=== PATIENT | male | born 1945 | race Caucasian/White ===

== ENCOUNTER 2023-11-30 09:43 | Emergency (ER) | payer OTHER, SELFPAY ==
[2023-11-30 10:00] VITALS: BP 140/66
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
[2023-11-30 11:27] VITALS: BMI 23.9
[2023-11-30 11:30] VITALS: BP 138/68
[2023-11-30 11:52] LABS: % Basophils 0.8 % (0-2); % Eosinophils 1.8 % (0-6); % Immature Granulocytes 0.3 % (0-0.5); % Lymphocytes 22.8 % (20.5-51.1); % Monocytes 7.9 % (1.7-9.3); % Neutrophils 66.4 % (42.2-75.2); Absolute Eosinophils 0.1 10^3/uL (0-0.7); Absolute Lymphocytes 0.9 10^3/uL (1.2-3.4); Absolute Monocytes 0.3 10^3/uL (0.1-0.6); Absolute Neutrophils 2.6 10^3/uL (1.4-6.5); Hematocrit 37.7 % (39.0-52.0); Hemoglobin 12.8 g/dL (13.0-18.0); Mean Corpuscular Volume 97.2 fL (80.0-94.0); Nucleated Red Blood Cells % 0 % (-); Red Blood Cell Count 3.88 10^6/uL (4.70-6.10); Red Cell Dist. Width 14.5 % (11.5-14.5); White Blood Cell Count 3.9 10^3/uL (4.8-10.8)
[2023-11-30 12:00] VITALS: BP 119/69
[2023-11-30 12:06] LABS: Potassium 4.1 mmol/L (3.5-5.1)
[2023-11-30 12:07] LABS: ALT (SGPT) 48 U/L (0-50); AST (SGOT) 69 U/L (17-59); Albumin 3.2 g/dl (3.5-5.0); Alkaline Phosphatase 204 U/L (38-126); Blood Urea Nitrogen 15 mg/dl (9-20); Calcium 8.8 mg/dl (8.4-10.2); Carbon Dioxide 26 mmol/L (22-30); Chloride 107 mmol/L (98-107); Estimated Creatinine Clearance 99 ml/min; Glucose 101 mg/dl (70-99); Lipase 91 U/L (23-300); Sodium 138 mmol/L (135-145); Total Protein 6.3 g/dl (6.3-8.2); eGFR > 60.00
[2023-11-30 12:25] LABS: Urine Albumin Negative (Neg - Trace); Urine Bilirubin Negative (Negative); Urine Character Clear (Clear); Urine Color Yellow; Urine Glucose Negative (Negative); Urine Ketone Negative (Negative); Urine Leukocyte Negative (Negative); Urine Nitrite Negative (Negative); Urine Occult Blood Negative (Negative); Urine Specific Gravity 1.015 (<1.030); Urine Urobilinogen 2+ (Neg - 1+)
[2023-11-30 12:29] LABS: Mean Platelet Volume 11.5 fL (7.4-10.4); Platelet Count 84 10^3/uL (130-400)
[2023-11-30 13:06] VITALS: BP 146/85
[2023-11-30 14:00] VITALS: BP 120/79
== END 2023-11-30 16:12 | disposition home or self-care (01) ==
LOC: EMR 09:43
PROVIDERS: Physician Assistant; EMERGENCY PHYSICIAN Emergency Medicine; FAMILY PHYSICIAN Internal Medicine
DX: R07.89 Other chest pain (principal); R10.11 Right upper quadrant pain; K82.8 Other specified diseases of gallbladder; K74.60 Unspecified cirrhosis of liver; K57.92 Diverticulitis of intestine, part unspecified, without perforation or abscess without bleeding
CPT/HCPCS: 99285; 74177; 76700; 80053; 81003; 83690; 85025; 93005; Q9967

== ENCOUNTER → 2024-01-05 13:13 | Outpatient (REF) | payer OTHER, SELFPAY | LOC: MRI 3T 13:13 | PROVIDERS: ATTENDING PHYSICIAN Internal Medicine Transplant Hepatology; FAMILY PHYSICIAN Internal Medicine | DX: K74.69 Other cirrhosis of liver (principal) | CPT/HCPCS: 74183; A9581 ==

== ENCOUNTER → 2024-01-28 06:22 | Day surgery (SDC) | payer OTHER, SELFPAY | LOC: GI 06:22 | PROVIDERS: ATTENDING PHYSICIAN Internal Medicine | DX: K74.60 Unspecified cirrhosis of liver (principal); K44.9 Diaphragmatic hernia without obstruction or gangrene; K22.4 Dyskinesia of esophagus; I85.10 Secondary esophageal varices without bleeding; K31.89 Other diseases of stomach and duodenum | CPT/HCPCS: 43239; 88305; 88342 ==

== ENCOUNTER 2024-07-10 12:40 | Inpatient (IN) | payer OTHER, SELFPAY ==
[2024-07-10] VITALS (19 sets, daily range): BP systolic 94–147; BP diastolic 58–91; PULSE 80–85; BMI 24.1
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
[2024-07-10] MEDS: NSS 500 IV (09:18)
[2024-07-10] MEDS: PROTONIX IV 80 MG IV (09:28)
[2024-07-10] MEDS: ROCEPHIN 1000 MG IV (09:28)
[2024-07-10 09:30] LABS: Ammonia 11 umol/L (9-30)
[2024-07-10 09:31] LABS: ALT (SGPT) 41 U/L (0-50); AST (SGOT) 81 U/L (17-59); Albumin 2.8 g/dl (3.5-5.0); Alkaline Phosphatase 168 U/L (38-126); Blood Urea Nitrogen 35 mg/dl (9-20); Carbon Dioxide 22 mmol/L (22-30); Chloride 107 mmol/L (98-107); Estimated Creatinine Clearance 101 ml/min; Glucose 118 mg/dl (70-99); Potassium 3.8 mmol/L (3.5-5.1); Sodium 135 mmol/L (135-145); Total Bilirubin 2.8 mg/dl (0.2-1.3); Total Protein 5.7 g/dl (6.3-8.2); eGFR > 60.00
[2024-07-10 09:33] LABS: INR 1.45; PT 18.1 Sec (11.4-14.6)
[2024-07-10 10:19] LABS: % Basophils 0.5 % (0-2); % Immature Granulocytes 0.5 % (0-0.5); % Monocytes 17.2 % (1.7-9.3); % Neutrophils 62.8 % (42.2-75.2); Absolute Lymphocytes 0.7 10^3/uL (1.2-3.4); Absolute Monocytes 0.7 10^3/uL (0.1-0.6); Absolute Neutrophils 2.5 10^3/uL (1.4-6.5); Hematocrit 31.2 % (39.0-52.0); Hemoglobin 10.7 g/dL (13.0-18.0); Mean Corp Hgb Conc. 34.3 g/dL (33.0-37.0); Mean Corpuscular Hgb 33.6 pg (27.0-31.0); Mean Corpuscular Volume 98.1 fL (80.0-94.0); Mean Platelet Volume 12.9 fL (7.4-10.4); Nucleated Red Blood Cells % 0 % (-); Platelet Count 65 10^3/uL (130-400); Red Blood Cell Count 3.18 10^6/uL (4.70-6.10); Red Cell Dist. Width 14.3 % (11.5-14.5); White Blood Cell Count 3.9 10^3/uL (4.8-10.8)
[2024-07-10] MEDS: SANDOSTATIN 50 MCG SC (10:57)
[2024-07-10] MEDS: SANDOSTATIN 500.6 MCG IV ×2 (11:59→23:59)
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
[2024-07-10 12:43] LABS: Urine Albumin Negative (Neg - Trace); Urine Bilirubin Negative (Negative); Urine Character Clear (Clear); Urine Color Yellow; Urine Glucose Negative (Negative); Urine Ketone Negative (Negative); Urine Leukocyte Negative (Negative); Urine Nitrite Negative (Negative); Urine Occult Blood Negative (Negative); Urine Specific Gravity 1.015 (<1.030); Urine Urobilinogen 1+ (Neg - 1+)
--- NOTE | 2024-07-10 12:58 | CON.GI ---
Addendum entered and electronically signed by Lambert Rodrigues MD 07/11/24 10:09:
His is the POA and she signs the consent for procedures.
Original Note:
Consultation
-
Date/Time Consultation Requested: 07/10/2024
Date/Time Consultation Performed: 07/10/2024
Requesting Provider: Hospitalist
Performing Provider: Jw VALENZUELA
Reason for Consultation: balck stool
Medical History
Chief Complaint / HPI
Chief Complaint: melena
History of Present Illness:
78-year-old male with history of liver cirrhosis who currently follows up with Dr. Gomez/Dr. Heredia is brought to the hospital by his as she noticed dark tarry stool this a.m. ( she went to bathroom after she heard a loud noise and noticed her
lying in the bathroom covered with dark stools). reports that has been having multiple BMs in the recent past but he never showed his stool to her. She is suspecting he may be bleeding inside. reports that mental status
of her has been stable and he is at baseline now. He takes rifaximin. He could not tolerate lactulose in the past and she does not want him to have lactulose.
Past Medical History
Past Medical History: Other (cirrhosis)
Social History
Tobacco: Non-Smoker
Alcohol: None
Personal:
Allergies / Home Medications
Allergy/AdvReac Type Severity Reaction Status Date / Time
No Known Allergies Allergy Verified 07/10/24 08:57
�Medication �Instructions �Recorded
oxycodone 5 mg tablet 5 mg PO Q6H PRN Pain #7 tabs 11/30/23
Review of Systems
Vital Signs
Temp Pulse Resp BP Pulse Ox
97.6 F 68 21 133/81 98
07/10/24 08:57 07/10/24 12:02 07/10/24 12:02 07/10/24 12:00 07/10/24 12:05
Physical Exam
Exam
General: No Apparent Distress
Respiratory: Clear
Cardiac: S1/S2
GI: Soft, Non Tender, Non Distended and Normal Bowel Sounds
Neuro: AO x 3 (AAO x 2 -oriented to person/place. not to time (as per that his baseline))
Results
WBC 3.9 10^3/uL (4.8-10.8) L 07/10/24 09:07
Hgb 10.7 g/dL (13.0-18.0) L 07/10/24 09:07
Hct 31.2 % (39.0-52.0) L 07/10/24 09:07
MCV 98.1 fL (80.0-94.0) H 07/10/24 09:07
Plt Count 65 10^3/uL (130-400) L 07/10/24 09:07
Absolute Neuts (auto) 2.5 10^3/uL (1.4-6.5) 07/10/24 09:07
PT 18.1 Sec (11.4-14.6) H 07/10/24 09:07
INR 1.45 07/10/24 09:07
Sodium 135 mmol/L (135-145) 07/10/24 09:07
Potassium 3.8 mmol/L (3.5-5.1) 07/10/24 09:07
Chloride 107 mmol/L (98-107) 07/10/24 09:07
Carbon Dioxide 22 mmol/L (22-30) 07/10/24 09:07
BUN 35 mg/dl (9-20) H 07/10/24 09:07
Creatinine 0.7 mg/dL (0.7-1.3) 07/10/24 09:07
Calcium 8.0 mg/dl (8.4-10.2) L 07/10/24 09:07
Total Bilirubin 2.8 mg/dl (0.2-1.3) H 07/10/24 09:07
AST 81 U/L (17-59) H 07/10/24 09:07
ALT 41 U/L (0-50) 07/10/24 09:07
Alkaline Phosphatase 168 U/L (38-126) H 07/10/24 09:07
Diagnostic Image Results:
MRI abdomen 01/05/2024
IMPRESSION:
1. SEVERE HEPATIC CIRRHOSIS.
2. Small volume of ascites.
3. Severe splenomegaly.
4. Large perisplenic varices and severe splenorenal shunting.
5. Reactive gallbladder distention and wall thickening which appears unchanged.
Prior GI Procedures:
EGD:
01/28/2024 Dr. Gomez
Impression: - Abnormal esophageal motility with tight
cricopharyngeus and distal esophagus.
- Small (< 5 mm) esophageal varices. Not banded.
- 2 cm hiatal hernia.
- Erosive gastropathy with no bleeding and no stigmata
of recent bleeding. Biopsied. Negative for HP
- Flattened mucosa was found in the duodenum, rule out
celiac disease. Biopsied. Negative for celiac disease
Colonoscopy: 05/03/2018 Dr. Gomez
Impression: - Hemorrhoids found on perianal exam.
- Diverticulosis in the sigmoid colon. There was active
bleeding coming from the diverticular opening. Injected.
Clip was placed.
- Blood in the entire examined colon. Lavaged with 2L
with good clearance.
- The examined portion of the ileum was normal.
Assessment / Plan
-
78-year-old male with history of cirrhosis of unknown etiology currently follows up with Dr. Gomez/Dr. Heredia is brought by his as he was having dark melanotic stool this a.m. No further episode since admission. Denies any nausea or vomiting. Hb
on admission was 10.7. Hb was 12.8 ( 11/2023 ). Platelets 65
INR 1.45
AST 81/ALT 41/alkaline phosphatase 168/total bilirubin 2.8/albumin 2.8/serum creatinine 0.7
CT head was negative
Assessment
-- Liver cirrhosis with prior history of encephalopathy. Etiology of liver cirrhosis unclear. following up with Dr. Heredia/Dr. Gomez. MELD- Na 16. Last MRI 12/2023-no focal liver lesion. Mild ascites
-- Melena. BUN was noted to be 35. Hb 10.7 . last EGD 01/2024 Dr. Gomez-grade 1 small varices/erosive gastropathy noted
-- History of encephalopathy. Mental status baseline as per . Ammonia level 11
plan
Clear liquid diet
Continue monitor H&H
Continue octreotide drip
Continue Protonix drip
Continue antibiotics
Continue rifaximin. Patient does not want him to have lactulose
Discussed benefits and risk of EGD. Patient's is the POA. She verbalized understanding and is agreeable for the procedure. Will schedule for EGD tomorrow
Patient's was asking about doing a colonoscopy during this admission. Will discuss after EGD.
N.p.o. after midnight
Total Time Spent with Patient (in minutes): 55
-
-
Thank you for consultation and allowing me to participate in the patient's care. Please call the refrigeration systems installer GI physician during the after hours with any questions or concerns.
[2024-07-10] MEDS: PROTONIX 100 IV (17:18)
[2024-07-10 17:55] LABS: Hematocrit 30.5 % (39.0-52.0); Hemoglobin 10.4 g/dL (13.0-18.0)
--- NOTE | 2024-07-10 18:39 | PTCARENOTE ---
Patient arrived to unit from ED via stretcher; cannot verify accuracy of vital signs prior to 1829. L ac IV site infiltrated where octreotide was infusing; VAT RN paged to start new site. Octreotide moved to R hand IV site; protonix infusing in L
hand. D5 1/2NSS on pump and ready to infuse once new site obtained. Patient Ox1, pleasantly confused; did not know he was in the hospital, did not know the year and did not remember celebrating [place] or the ambulance ride to the hospital. Bed
alarm activated for patient safety. Will report off to oncoming RN.
[2024-07-10] MEDS: D5/0.45%NACL 1000 IV (19:13)
--- NOTE | 2024-07-10 22:28 | PTCARENOTE ---
pt arrived from ED at shift change. pt is AAOx1-2, knows he is in the hospital but very forgetful. bed alarm on. spoke to Quyen on the phone re: concerns about colonoscopy etc. will relay in AM. NSR w/PAC's on the monitor. no c/o pain. able
to use urinal at bedside without issues. orthostatic vitals attempted, pt admitted to feeling dizzy, orthos laying and sitting obtained and then placed back to bed. IV PPI gtt, IV octreotide and IV fluids infusing. care ongoing.
[2024-07-10 22:41] LABS: Hematocrit 29.4 % (39.0-52.0); Hemoglobin 10.5 g/dL (13.0-18.0)
[2024-07-11] VITALS (15 sets, daily range): BP systolic 92–138; BP diastolic 50–72
[2024-07-11] MEDS: PROTONIX 100 IV ×2 (00:48→12:13)
[2024-07-11] MEDS: D5/0.45%NACL 1000 IV ×2 (04:31→14:27)
[2024-07-11 05:20] LABS: Hematocrit 26.9 % (39.0-52.0); Hemoglobin 9.1 g/dL (13.0-18.0); Mean Corp Hgb Conc. 33.8 g/dL (33.0-37.0); Mean Corpuscular Hgb 33.1 pg (27.0-31.0); Mean Corpuscular Volume 97.8 fL (80.0-94.0); Mean Platelet Volume 13.7 fL (7.4-10.4); Platelet Count 68 10^3/uL (130-400); Red Blood Cell Count 2.75 10^6/uL (4.70-6.10); Red Cell Dist. Width 14.7 % (11.5-14.5); White Blood Cell Count 3.8 10^3/uL (4.8-10.8)
[2024-07-11 05:47] LABS: ALT (SGPT) 32 U/L (0-50); AST (SGOT) 67 U/L (17-59); Albumin 2.1 g/dl (3.5-5.0); Alkaline Phosphatase 124 U/L (38-126); Blood Urea Nitrogen 24 mg/dl (9-20); Calcium 7.4 mg/dl (8.4-10.2); Carbon Dioxide 21 mmol/L (22-30); Chloride 108 mmol/L (98-107); Estimated Creatinine Clearance 89 ml/min; Glucose 125 mg/dl (70-99); Potassium 3.8 mmol/L (3.5-5.1); Sodium 134 mmol/L (135-145); Total Bilirubin 2.6 mg/dl (0.2-1.3); Total Protein 4.7 g/dl (6.3-8.2); eGFR > 60.00
[2024-07-11 09:43] LABS: Hematocrit 26.7 % (39.0-52.0); Hemoglobin 9.4 g/dL (13.0-18.0)
--- NOTE | 2024-07-11 09:53 | W.PN.HOSP.TC ---
Today's Communication/Plan
-
Doing well
EGD today
Assessment / Plan
Assessment / Plan
Physical Exam
Gen: NAD, AAOx3.
HEENT: EOMI, moderated scleral icterus.
Neck: supple.
CV: RRR, +S1/S2
Resp: CTAB
Abd: +BS, soft, NT, ND
Skin: Warm. Dry. + Jaundice
Neuro: CN 2-12 intact, non-focal.
Psych: Normal mood and affect.
CT brain: No acute intracranial abnormality noted.
Assessment/Plan
Acute melena
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
-Hb lower than prior, acute blood loss anemia
-cont Protonix and octreotide gtts
-cont Rocephin
-gentle IVFs
-GI following, EGD for today
-NPO and diet as per GI
Liver cirrhosis (of unknown etiology) with prior history of encephalopathy
Mild Ascites
Change in mental status
-More likely acute metabolic encephalopathy due to anemia/acute process as opposed to hepatic encephalopathy (although a normal ammonia does not rule out hepatic encephalopathy)
-Continue rifaximin for now (discussed with GI) -- patient's does not want patient to get Lactulose
FULL/SCDs/IMU
Anticipated Discharge: 24 - 48 hours
Subjective/Interval History
-
Date of Service: July 11, 2024
Patient was seen and examined. He denied any bloody or dark colored bowel movements overnight, and denied any other complaints.
Objective Data
-
Labs:
Laboratory Results
07/10/24 07/11/24 07/11/24
21:57 04:36 04:36
WBC 3.8 L
Hgb 10.5 L Cancelled 9.1 L
Hct 29.4 L Cancelled
Plt Count
Sodium
Potassium
Chloride
Carbon Dioxide
BUN
Creatinine
Glucose
Calcium
Total Bilirubin
AST
ALT
Alkaline Phosphatase
07/11/24 07/11/24
04:36 09:35
WBC
Hgb 9.4 L
Hct 26.9 L 26.7 L
Plt Count 68 L
Sodium 134 L
Potassium 3.8
Chloride 108 H
Carbon Dioxide 21 L
BUN 24 H
Creatinine 0.8
Glucose 125 H
Calcium 7.4 L
Total Bilirubin 2.6 H
AST 67 H
ALT 32
Alkaline Phosphatase 124
Vital Signs:
Vital Signs
Temp Pulse Resp BP Pulse Ox
97.6 F 65 19 111/64 96
07/11/24 07:49 07/11/24 08:00 07/11/24 08:00 07/11/24 08:00 07/11/24 08:00
I&O
07/10/24 07/11/24 07/12/24
06:59 06:59 06:59
Output Total 1050 / 1050 700 / 700
Balance -1050 / -1050 -700 / -700
[2024-07-11] MEDS: ROCEPHIN 1000 MG IV (10:44)
[2024-07-11] MEDS: STERILE WATER FOR INJECTION 10 ML IV (10:44)
[2024-07-11] MEDS: SANDOSTATIN 500.6 MCG IV (12:13)
--- NOTE | 2024-07-11 12:56 | PTCARENOTE ---
Recd pt this AM. confused, which is his baseline. vital signs stable but pt does get dizzy on sitting and standing. Able to stand with one assist to use urinal. good urine output.
--- NOTE | 2024-07-11 15:10 | CM ---
Multiple outreach attempts to SO/Quyen
No answer or ability to leave VM
Pt needs IA and per nursing, pt confused
Plan for EGD today
[2024-07-11] MEDS: CARAFATE SUSPENSION 1 GM PO ×2 (17:23→19:40)
[2024-07-11] MEDS: PROTONIX IV 40 MG IV (19:40)
[2024-07-11] MEDS: NSS (PRESERVATIVE FREE) 10 ML IV (19:40)
[2024-07-11] MEDS: TYLENOL 650 MG PO (22:42)
--- NOTE | 2024-07-11 23:38 | PTCARENOTE ---
assumed care of patient. pt is oriented to self, very confused. tried to reorient patient but unsuccessful. this is patient baseline. bed alarm on. pt with complaints of SPENCER, notified covering RESIDENT INSPECTOR, PO tylenol ordered and given. pt using urinal at
bedside. IV fluids and octreotide gtt infusing. tolerating clear liquid diet. care ongoing.
[2024-07-12] VITALS (13 sets, daily range): BP systolic 114–148; BP diastolic 61–92; BMI 23.6
[2024-07-12] MEDS: SANDOSTATIN 500.6 MCG IV ×3 (00:23→23:34)
[2024-07-12] MEDS: D5/0.45%NACL 1000 IV ×3 (00:23→21:09)
--- NOTE | 2024-07-12 03:59 | PTCARENOTE ---
throughout the night, pt has been extremely confused but now getting agitated with staff. pt is unable to be redirected at all. attempted to call patients with no answer. bed alarm on.
[2024-07-12 05:38] LABS: ALT (SGPT) 32 U/L (0-50); AST (SGOT) 62 U/L (17-59); Albumin 2.3 g/dl (3.5-5.0); Alkaline Phosphatase 126 U/L (38-126); Blood Urea Nitrogen 14 mg/dl (9-20); Calcium 7.4 mg/dl (8.4-10.2); Carbon Dioxide 22 mmol/L (22-30); Chloride 109 mmol/L (98-107); Estimated Creatinine Clearance 89 ml/min; Glucose 120 mg/dl (70-99); Sodium 136 mmol/L (135-145); Total Protein 5.1 g/dl (6.3-8.2); eGFR > 60.00
[2024-07-12 05:47] LABS: Potassium 3.7 mmol/L (3.5-5.1)
[2024-07-12 05:49] LABS: Hematocrit 29.3 % (39.0-52.0); Hemoglobin 9.9 g/dL (13.0-18.0); Mean Corp Hgb Conc. 33.8 g/dL (33.0-37.0); Mean Corpuscular Hgb 33.2 pg (27.0-31.0); Mean Corpuscular Volume 98.3 fL (80.0-94.0); Mean Platelet Volume 12.8 fL (7.4-10.4); Platelet Count 76 10^3/uL (130-400); Red Blood Cell Count 2.98 10^6/uL (4.70-6.10); Red Cell Dist. Width 14.5 % (11.5-14.5)
[2024-07-12] MEDS: CARAFATE SUSPENSION 1 GM PO ×4 (08:15→21:11)
[2024-07-12] MEDS: PROTONIX IV 40 MG IV ×2 (08:15→21:10)
[2024-07-12] MEDS: NSS (PRESERVATIVE FREE) 10 ML IV ×2 (08:16→21:10)
[2024-07-12] MEDS: ROCEPHIN 1000 MG IV (10:45)
[2024-07-12] MEDS: STERILE WATER FOR INJECTION 10 ML IV (10:45)
--- NOTE | 2024-07-12 11:20 | PN.CDI ---
CDI
- -
CDI:
Physician Documentation Request
Admit Date: 07/10/24 12:40
Dear Doctor Brandon,
Patient presents for evaluation of melena.
Recent labs:
Laboratory Tests
07/10/24 07/11/24 07/12/24
09:07 04:36 04:36
WBC 3.9 L 3.8 L 3.0 L
RBC 3.18 L 2.75 L 2.98 L
Plt Count 65 L 68 L 76 L
Could you please provide a diagnosis that supports the above lab abnormalities and additional evaluation/ monitoring:
Pancytopenia
Abnormal lab value clinically insignificant
Other
Use of terms such as suspected, likely, concern for, or probable (associated with a specific diagnosis that is being evaluated, monitored, or treated as if it exists) are acceptable and can be coded in the inpatient setting, when documented at the
time of discharge.
Thank you,
Steff Spring RN, BSN
CDI Specialist
tiger text
Please use your independent medical judgment in providing your response.
--- NOTE | 2024-07-12 11:27 | W.PN.HOSP.TC ---
Today's Communication/Plan
-
See below
Assessment / Plan
Assessment / Plan
Physical Exam
Gen: NAD, AAOx3.
HEENT: Normocephalic.
Neck: supple.
CV: RRR, +S1/S2
Resp: CTAB
Abd: +BS, soft, NT, ND
Skin: Warm. Dry. + Jaundice
Neuro: CN 2-12 intact, non-focal.
Psych: Normal mood and affect.
CT brain: No acute intracranial abnormality noted.
Assessment/Plan
Acute melena
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
-Hb lower than prior, acute blood loss anemia
-Continue IV PPI 40 mg BiD given gastric erosions
-On discharge, Protonix 40 mg BiD for 2 weeks as well for prevention of post-banding ulceration
-Continue octreotide gtts for 72 hours
-On discharge, Coreg 3.125 mg BiD
-cont Rocephin
-gentle IVFs
-GI following, EGD for today
-Clear Liquids Diet today
Liver cirrhosis (of unknown etiology) with prior history of encephalopathy
Mild Ascites
Change in mental status
-More likely acute metabolic encephalopathy due to anemia/acute process as opposed to hepatic encephalopathy (although a normal ammonia does not rule out hepatic encephalopathy)
-Continue rifaximin for now (discussed with GI) -- patient's does not want patient to get Lactulose
-Start Miralax 17 gm BiD-TiD to titrate to 2-3 BMs per day given agitation earlier today
Pancytopenia
FULL/SCDs/IMU
Anticipated Discharge: 24 - 48 hours
Subjective/Interval History
-
Date of Service: July 12, 2024
Patient was seen and examined. No new complaints or symptoms, except some agitation later in the day.
Objective Data
-
Labs:
Laboratory Results
07/12/24
04:36
WBC 3.0 L
Hgb 9.9 L
Hct 29.3 L
Plt Count 76 L
Sodium 136
Potassium 3.7
Chloride 109 H
Carbon Dioxide 22
BUN 14
Creatinine 0.8
Glucose 120 H
Calcium 7.4 L
Total Bilirubin 3.0 H
AST 62 H
ALT 32
Alkaline Phosphatase 126
Vital Signs:
Vital Signs
Temp Pulse Resp BP Pulse Ox
97.9 F 58 14 129/71 100
07/12/24 07:10 07/12/24 10:50 07/12/24 10:50 07/12/24 10:50 07/11/24 22:00
I&O
07/11/24 07/12/24 07/13/24
06:59 06:59 06:59
Output Total 1050 / 1050 3000 / 3000
Balance -1050 / -1050 -3000 / -3000
--- NOTE | 2024-07-12 11:52 | PTCARENOTE ---
Recd pt this AM. remains very confused. Has not slept in approx 48 hours. Pt repeatedly requesting his . RN made 2 attempts to reach her but no answer and no voicemail available. Pt OOB to chair with min assist. no BM. Medsitter in place.
--- NOTE | 2024-07-12 14:38 | W.PN.GI.CBS2 ---
Today's Communication / Plan
-
S/p recent EGD with banding of grade II EV on 07/11 without signs of recurrent GI bleeding. Continue IV Octreotide gtt x 72 hrs along with IV PPI and IV Ceftriaxone. See rest of care as outlined below.
Assessment / Plan
-
Mr. Chicas is a 78-year-old male with history of cirrhosis of unknown etiology currently follows up with Dr. Gomez/Dr. Heredia is brought by his as he was having dark melanotic stool this a.m. No further episode since admission. Denies any nausea
or vomiting. Hb on admission was 10.7. Hb was 12.8 ( 11/2023 ). Platelets 65. INR 1.45 AST 81/ALT 41/alkaline phosphatase 168/total bilirubin 2.8/albumin 2.8/serum creatinine 0.7. Prior CT head was negative
#Liver cirrhosis with prior history of encephalopathy. Etiology of liver cirrhosis unclear. following up with Dr. Heredia/Dr. Gomez. MELD- Na 16. Last MRI 12/2023-no focal liver lesion. Mild ascites
#Melena 2/2 EV Bleed
#History of encephalopathy. Mental status baseline as per . Ammonia level 11
- S/p EGD 07/11 (for melena) with grade II EV without stigmata of bleeding s/p banding with complete eradication, few other gastric erosions without bleeding, gastric erythema (biopsied) and single duodenal polyp (biopsied) and otherwise wnl
- No signs of rebleeding since his EGD with stable Hgb 9.4 -> 9.9
Recommendations:
- Trend daily MELD 3.0 labs- CMP, INR and CBC
- Continue CLD today, if H/h remains stable may advance to fulls tomorrow
- IV PPI 40 mg BiD given gastric erosions, favor BiD for 2 weeks as well for prevention of post-banding ulceration
- IV Octreotide gtt x 72 hrs
- Will need to be started on NSBB (favor Coreg 3.125 mg BiD) after completion of IV Octreotide at time of discharge
- IV Ceftriaxone x 7 days, may transition to orals near discharge
- May resume home rifaximin 550 mg BiD
- Could not reach early this AM, according to does not want him to have lactulose
- Appears mental status at baseline and prior Ammonia lvl 11 wnl and without asterixis on exam
- Monitor for signs of HE as high risk given recent GI bleed. If concern for HE or worsening mental status, would start Miralax 17 gm BiD-TiD to titrate to 2-3 BMs per day
- No plans for a colonoscopy at this time given grade II EV s/p banding and source of presentation
- Patient was scheduled follow up with Dr. Gomez in office Aug 03 at 1pm
- Rest of care per primary team
Discussed with primary internal medicine team this AM. GI will continue to follow while inpatient.
Subjective
Subjective
Date of Service: July 12, 2024
- S/p EGD 07/11 (for melena) with grade II EV without stigmata of bleeding s/p banding with complete eradication. few other gastric erosions without bleeding, gastric erythema (biopsied) and single duodenal polyp (biopsied) and otherwise wnl
- No signs of rebleeding since his EGD with stable Hgb 9.4 -> 9.9
- Otherwise, no acute events overnight
Remains confused and altered, however reportedly at his baseline. Unable to tolerate lactulose (for unclear reasons) and specifically stating he cannot tolerate this. Otherwise, no recent melena or bloody stools.
Objective
Data Reviewed
Laboratory Data:
Laboratory Results
07/12/24 04:36
07/12/24 04:36
Laboratory Results
PT 18.1 Sec (11.4-14.6) H 07/10/24 09:07
INR 1.45 07/10/24 09:07
Total Bilirubin 3.0 mg/dl (0.2-1.3) H 07/12/24 04:36
AST 62 U/L (17-59) H 07/12/24 04:36
ALT 32 U/L (0-50) 07/12/24 04:36
Alkaline Phosphatase 126 U/L (38-126) 07/12/24 04:36
Vital Signs and I&O:
Vital Signs
Temp Pulse Resp BP Pulse Ox
97.9 F 60 15 115/66 100
07/12/24 11:40 07/12/24 12:00 07/12/24 12:00 07/12/24 12:00 07/11/24 22:00
I&O
07/11/24 07/12/24 07/13/24
06:59 06:59 06:59
Output Total 1050 / 1050 3000 / 3000
Balance -1050 / -1050 -3000 / -3000
Physical Exam
Physical Exam
HEENT: Anicteric and Moist mucous membranes
Cardiology: Normal Sinus Rhythm
Pulmonary: Other (Normal WOB on room air)
GI: Soft, Non Distended and Non Tender
Extremities: No Edema
Neuro: Other (AAOx2 (person/place, not time - reportedly his baseline) ; no asterixis)
--- NOTE | 2024-07-12 17:12 | PTCARENOTE ---
Pt increasingly confused. Has not slept since admission, over 48 hours. becoming more agitated. Dr. Shah notified. Medsitter in place. Conservative measures in place due to long QT. Frequent support provided to pt.
[2024-07-12] MEDS: XIFAXAN 550 MG PO (21:10)
[2024-07-12] MEDS: MIRALAX 17 GRAMS PO (21:10)
[2024-07-13] VITALS (9 sets, daily range): BP systolic 96–129; BP diastolic 49–78; BMI 23.3
--- NOTE | 2024-07-13 02:26 | PTCARENOTE ---
Pt appearing to get sleep last night, respirations even unlabored vitals stable at this time. Continued reminding needed for Pt about why he is here and why his is not here. Pt thinking he had 'drive here' and his 'is looking for him'.
Emotional support and education given Pt was able to be redirected multiple times. Pt had no complaints of pain at this time. bed alarm on, med sitter in room.
[2024-07-13 04:09] LABS: Hematocrit 30.7 % (39.0-52.0); Hemoglobin 10.3 g/dL (13.0-18.0); Mean Corp Hgb Conc. 33.6 g/dL (33.0-37.0); Mean Corpuscular Hgb 33.4 pg (27.0-31.0); Mean Corpuscular Volume 99.7 fL (80.0-94.0); Mean Platelet Volume 12.9 fL (7.4-10.4); Platelet Count 75 10^3/uL (130-400); Red Blood Cell Count 3.08 10^6/uL (4.70-6.10); Red Cell Dist. Width 14.3 % (11.5-14.5); White Blood Cell Count 2.8 10^3/uL (4.8-10.8)
[2024-07-13 04:30] LABS: ALT (SGPT) 33 U/L (0-50); AST (SGOT) 63 U/L (17-59); Albumin 2.4 g/dl (3.5-5.0); Alkaline Phosphatase 119 U/L (38-126); Blood Urea Nitrogen 10 mg/dl (9-20); Calcium 7.4 mg/dl (8.4-10.2); Carbon Dioxide 26 mmol/L (22-30); Chloride 106 mmol/L (98-107); Estimated Creatinine Clearance 89 ml/min; Glucose 124 mg/dl (70-99); Potassium 3.7 mmol/L (3.5-5.1); Sodium 136 mmol/L (135-145); Total Bilirubin 4.2 mg/dl (0.2-1.3); Total Protein 5.2 g/dl (6.3-8.2); eGFR > 60.00
[2024-07-13] MEDS: D5/0.45%NACL 1000 IV (07:04)
[2024-07-13] MEDS: MIRALAX 17 GRAMS PO (08:17)
[2024-07-13] MEDS: PROTONIX IV 40 MG IV (08:17)
[2024-07-13] MEDS: CARAFATE SUSPENSION 1 GM PO ×2 (08:17→11:35)
[2024-07-13] MEDS: XIFAXAN 550 MG PO (08:17)
[2024-07-13] MEDS: NSS (PRESERVATIVE FREE) 10 ML IV (08:17)
--- NOTE | 2024-07-13 08:27 | W.PN.GI.CBS2 ---
Today's Communication / Plan
-
-- he could go today from a GI perspective - he was banded but had no stigmata. according to 11/2023 AASLD guidelines needs octreotide for 2-5 days which he's had and antibiotics up to discharge. hgb stable, bun normalized. so can go on his xifaxan
BID, holding bblockers due to bradycardia, follow up scheduled. Please send labs: CBC, INR, CMP for next week and results can come to me.
Assessment / Plan
-
Mr. Chicas is a 78-year-old male with history of cirrhosis of unknown etiology currently follows up with Dr. Gomez/Dr. Heredia is brought by his as he was having dark melenic stool 07/10/24. No further episode since admission. Denies any nausea or
vomiting. Hb on admission was 10.7. Hb was 12.8 ( 11/2023 ). Platelets 65. INR 1.45 AST 81/ALT 41/alkaline phosphatase 168/total bilirubin 2.8/albumin 2.8/serum creatinine 0.7. Prior CT head was negative
#Liver cirrhosis with prior history of encephalopathy. Etiology of liver cirrhosis unclear. following up with Dr. Heredia/Dr. Gomez. MELD- Na 16. Last MRI 12/2023-no focal liver lesion. Mild ascites
#Melena 2/2 EV Bleed
#History of encephalopathy. Mental status baseline as per . Ammonia level 11
- S/p EGD 07/11 (for melena) with grade II EV without stigmata of bleeding s/p banding with complete eradication, few other gastric erosions without bleeding, gastric erythema (biopsied) and single duodenal polyp (biopsied) and otherwise wnl
- No signs of rebleeding since his EGD with stable Hgb 9.4 -> 9.9 --> 10.3, normalized BUN
Recommendations:
- Trend daily MELD 3.0 labs- CMP, INR and CBC
- advance diet
- IV PPI 40 mg BiD given gastric erosions, favor BiD for 2 weeks as well for prevention of post-banding ulceration, then once daily until repeat
- IV Octreotide gtt (according to AASLD guidelines from 11/2023) patient should be maintained on vasoactive therapy for 2 to 5 days. Goal is to reduce portal pressure and collateral blood flow.
- Will need to be started on NSBB (favor Coreg 3.125 mg BiD) after completion of IV Octreotide at time of discharge -as an outpatient he had previously been bradycardic and beta-blockers have been held - since he was banded we could hold off on
starting the NSBB due to low BPs (currently in the 50s) - this has been discussed outpatient
- stop antibiotics upon discharge - 5 days or upon discharge whatever is first
- per AASLD 11/2023 guidelines: 'Vasoactive therapy (Table 5) that is aimed to reduce portal pressure and collateral blood flow[159,160] as well as antimicrobial prophylaxis should be initiated immediately on presentation and maintained for 2�5
days.[1,159,160] Intravenous antimicrobials are recommended until stability for discharge or 5 days, whichever is shorter, in the absence of active infection.'
- continue home rifaximin 550 mg BiD
- Appears mental status at baseline and prior Ammonia lvl 11 wnl and without asterixis on exam
- Monitor for signs of HE as high risk given recent GI bleed. If concern for HE or worsening mental status, would start lactulose
- No plans for a colonoscopy at this time given grade II EV s/p banding and source of presentation
- Patient was scheduled follow up with Dr. Gomez in office Aug 03 at 1pm
- Rest of care per primary team
Discussed with primary internal medicine team this AM
I called his with no answer, but LVM
re: Moises Chicas - he could go today from a GI perspective - he was banded but had no stigmata. according to 11/2023 AASLD guidelines needs octreotide for 2-5 days which he's had and antibiotics up to discharge. hgb stable, bun normalized. so can go
on his xifaxan BID, holding bblockers due to bradycardia, follow up scheduled. Please send labs: CBC, INR, CMP for next week and results can come to me, Dr. Gomez
Subjective
Subjective
Date of Service: July 13, 2024
Objective
Data Reviewed
Laboratory Data:
Laboratory Results
07/13/24 03:19
07/13/24 03:19
Laboratory Results
PT 18.1 Sec (11.4-14.6) H 07/10/24 09:07
INR 1.45 07/10/24 09:07
Total Bilirubin 4.2 mg/dl (0.2-1.3) H 07/13/24 03:19
AST 63 U/L (17-59) H 07/13/24 03:19
ALT 33 U/L (0-50) 07/13/24 03:19
Alkaline Phosphatase 119 U/L (38-126) 07/13/24 03:19
Vital Signs and I&O:
Vital Signs
Temp Pulse Resp BP Pulse Ox
98.3 F 57 19 99/49 97
07/13/24 03:21 07/13/24 04:00 07/13/24 04:00 07/13/24 04:00 07/12/24 20:20
I&O
07/12/24 07/13/24 07/14/24
06:59 06:59 06:59
Intake Total 2180.4 / 2180.4
Output Total 3000 / 3000 850 / 850
Balance -3000 / -3000 1330.4 / 1330.4
--- NOTE | 2024-07-13 09:42 | W.PN.HOSP.TC ---
Today's Communication/Plan
-
Discharge today
Assessment / Plan
Assessment / Plan
Physical Exam
Gen: NAD, AAOx3.
HEENT: Normocephalic.
Neck: supple.
CV: RRR, +S1/S2
Resp: CTAB
Abd: +BS, soft, NT, ND
Skin: Warm. Dry.
Neuro: CN 2-12 intact, non-focal.
Psych: Normal mood and affect.
Assessment/Plan
Acute melena
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
-Hgb stable, BUN normalized
-Continue IV PPI 40 mg BiD given gastric erosions
-On discharge, Protonix 40 mg BiD for 2 weeks as well for prevention of post-banding ulceration, then Protonix 40 mg once daily until repeat
-Patient received Octreotide and Rocephin during his hospitalization, no antibiotics needed after discharge
-No beta blockers on discharge given bradycardia
-GI following
-EGD took place on 07/11/24, results are above, no rebleeding since
-Patient will need CBC, INR, CMP done within 1 week, and the results should be sent to Dr. Gomez, doorperson
-Follow up with Dr. Gomez in office Aug 03 at 1pm
Liver cirrhosis (of unknown etiology) with prior history of encephalopathy
Mild Ascites
Change in mental status
-More likely acute metabolic encephalopathy due to anemia/acute process as opposed to hepatic encephalopathy (although a normal ammonia does not rule out hepatic encephalopathy)
-Continue rifaximin 550 mg BID -- patient's does not want patient to get Lactulose
-Start Miralax 17 gm BiD-TiD to titrate to 2-3 BMs per day given agitation earlier today
Pancytopenia
FULL/SCDs/IMU
More than 30 minutes spent in discharge including
Final examination of the patient
Summarizing hospital stay
Instructions for continuing care to all relevant caregivers
Preparation of discharge records, prescriptions, and referral forms
Total time spent (in minutes): 43
Anticipated Discharge: Today
Subjective/Interval History
-
Date of Service: July 13, 2024
Patient was seen and examined. He denied any symptoms or complaints.
Objective Data
-
Labs:
Laboratory Results
07/13/24
03:19
WBC 2.8 L
Hgb 10.3 L
Hct 30.7 L
Plt Count 75 L
Sodium 136
Potassium 3.7
Chloride 106
Carbon Dioxide 26
BUN 10
Creatinine 0.8
Glucose 124 H
Calcium 7.4 L
Total Bilirubin 4.2 H
AST 63 H
ALT 33
Alkaline Phosphatase 119
Vital Signs:
Vital Signs
Temp Pulse Resp BP Pulse Ox
97.9 F 57 19 99/49 97
07/13/24 07:25 07/13/24 04:00 07/13/24 04:00 07/13/24 04:00 07/12/24 20:20
I&O
07/12/24 07/13/24 07/14/24
06:59 06:59 06:59
Intake Total 2180.4 / 2180.4
Output Total 3000 / 3000 850 / 850 300 / 300
Balance -3000 / -3000 1330.4 / 1330.4 -300 / -300
[2024-07-13] MEDS: STERILE WATER FOR INJECTION 10 ML IV (09:51)
[2024-07-13] MEDS: ROCEPHIN 1000 MG IV (09:51)
--- NOTE | 2024-07-13 11:49 | W.PN.UPDATE ---
Update Note
Progress Note Update
i did speak to Quyen his and she is ok with the plan. we're planning on an outpatient capsule. they don't want a colonoscopy and there was no clear source on EGD
[2024-07-13] MEDS: SANDOSTATIN IV (14:53)
--- NOTE | 2024-07-13 16:15 | PTCARENOTE ---
VSS. Pt confused, bed alarm and med sitter in place to maintain patient safety. Pt is redirectable and pleasant. Discharge instructions discussed w/ pt's Quyen, all questions answered. Pt discharged.
== END 2024-07-13 16:25 | disposition home or self-care (01) | DRG 377 ==
LOC: IMU 12:40
PROVIDERS: Internal Medicine Gastroenterology; ADMITTING PHYSICIAN Internal Medicine; ATTENDING PHYSICIAN Hospitalist; CONSULT PHYSICIAN Internal Medicine Gastroenterology; EMERGENCY PHYSICIAN Emergency Medicine; FAMILY PHYSICIAN Internal Medicine
PROC: 0DB98ZX Excision of Duodenum, Via Natural or Artificial Opening Endoscopic, Diagnostic (ICD-10-PCS; 2024-07-11)
PROC: 0DB68ZX Excision of Stomach, Via Natural or Artificial Opening Endoscopic, Diagnostic (ICD-10-PCS; 2024-07-11)
DX: K92.1 Melena (principal); G93.41 Metabolic encephalopathy; D61.818 Other pancytopenia; R18.8 Other ascites; I85.10 Secondary esophageal varices without bleeding; K74.60 Unspecified cirrhosis of liver; K64.9 Unspecified hemorrhoids; K22.2 Esophageal obstruction; K44.9 Diaphragmatic hernia without obstruction or gangrene; K31.7 Polyp of stomach and duodenum
CPT/HCPCS: 88305; 70450; 80053; 81003; 82140; 85014; 85018; 85025; 85027; 85610; 86850; 86900; 86901; 88342; 93005; 96361; 96372; 96374; 96375; 99291

== ENCOUNTER 2024-07-15 19:49 | Inpatient (IN) | payer OTHER, SELFPAY ==
[2024-07-14] VITALS (12 sets, daily range): BP systolic 110–149; BP diastolic 60–82; PULSE 60–72; BMI 25.3; BMI 24.7
[2024-07-14 11:27] LABS: % Basophils 0.4 % (0-2); % Eosinophils 1.8 % (0-6); % Immature Granulocytes 0.4 % (0-0.5); % Monocytes 9.6 % (1.7-9.3); % Neutrophils 66.8 % (42.2-75.2); Absolute Eosinophils 0.1 10^3/uL (0-0.7); Absolute Monocytes 0.5 10^3/uL (0.1-0.6); Absolute Neutrophils 3.3 10^3/uL (1.4-6.5); Hematocrit 33.9 % (39.0-52.0); Hemoglobin 11.8 g/dL (13.0-18.0); Mean Corp Hgb Conc. 34.8 g/dL (33.0-37.0); Mean Corpuscular Hgb 33.5 pg (27.0-31.0); Mean Corpuscular Volume 96.3 fL (80.0-94.0); Mean Platelet Volume 12.4 fL (7.4-10.4); Nucleated Red Blood Cells % 0 % (-); Platelet Count 100 10^3/uL (130-400); Red Blood Cell Count 3.52 10^6/uL (4.70-6.10); Red Cell Dist. Width 14.4 % (11.5-14.5); White Blood Cell Count 4.9 10^3/uL (4.8-10.8)
[2024-07-14 11:36] LABS: ALT (SGPT) 36 U/L (0-50); AST (SGOT) 71 U/L (17-59); Albumin 2.8 g/dl (3.5-5.0); Alkaline Phosphatase 162 U/L (38-126); Blood Urea Nitrogen 12 mg/dl (9-20); Calcium 8.1 mg/dl (8.4-10.2); Carbon Dioxide 27 mmol/L (22-30); Chloride 105 mmol/L (98-107); Glucose 133 mg/dl (70-99); Potassium 3.8 mmol/L (3.5-5.1); Sodium 137 mmol/L (135-145); Total Bilirubin 5.1 mg/dl (0.2-1.3); Total Protein 5.8 g/dl (6.3-8.2); eGFR > 60.00
--- NOTE | 2024-07-14 12:28 | ED.GENMED ---
History of Present Illness
General
Chief Complaint: Rectal Bleeding
Source: patient
Exam Limitations: none
Time Seen by Provider: 07/14/24 12:04
History of Present Illness
History of Present Illness:
78-year-old male presents for reevaluation. He was discharged from this hospital yesterday with GI bleeding. He had an endoscopy. He has a history of cirrhosis. He had some esophageal varices banded during his endoscopy. There was no obvious
stigmata of bleeding at that time. The decision was made to discharge him. Last evening had a large black bowel movement. His notes that he is slightly dizzy upon standing. He denies pain. He has no complaints otherwise.
Past History
Past History
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
ED Past Surgical History: None
Social History
Tobacco: Non-smoker
Alcohol: Occasional
Personal:
Living: with family
Employment: Retired
Family History
Family History: Other (Noncontributory)
Phy Exam
Physical Exam
Physical Exam:
General: Well-appearing male slightly jaundiced no acute respiratory distress
HEENT: Normocephalic atraumatic sclera icteric
Heart: Regular rate and rhythm no murmurs
Lungs: Clear no wheeze
Abdomen soft slightly distended nontender no guarding rebound normal bowel sounds
Rectal exam shows black tarry stool that is heme positive
Extremities: No cyanosis
Course
Orders/Labs/Results
Orders:
Orders
07/14/24 11:04
Complete Blood Count/With Diff Urgent
Comprehensive Metabolic Panel Urgent
07/14/24 13:14
Pantoprazole [Protonix IV] 40 mg IV NOW STA
Abnormal Lab Results
07/14/24
11:04
RBC 3.52 L 10^6/uL
(4.70-6.10)
Hgb 11.8 L g/dL
(13.0-18.0)
Hct 33.9 L %
(39.0-52.0)
MCV 96.3 H fL
(80.0-94.0)
MCH 33.5 H pg
(27.0-31.0)
Plt Count 100 L D 10^3/uL
(130-400)
MPV 12.4 H fL
(7.4-10.4)
Absolute Lymphs (auto) 1.0 L 10^3/uL
(1.2-3.4)
Monocytes % 9.6 H %
(1.7-9.3)
Glucose 133 H mg/dl
(70-99)
Calcium 8.1 L mg/dl
(8.4-10.2)
Total Bilirubin 5.1 H mg/dl
(0.2-1.3)
AST 71 H U/L
(17-59)
Alkaline Phosphatase 162 H U/L
(38-126)
Total Protein 5.8 L g/dl
(6.3-8.2)
Albumin 2.8 L g/dl
(3.5-5.0)
07/14/24 11:04
07/14/24 11:04
Vital Signs
Initial and Last Documented VS:
Initial Vital Signs
Temp Pulse Resp BP Pulse Ox
98.0 F 73 16 139/82 98
07/14/24 09:56 07/14/24 09:56 07/14/24 09:56 07/14/24 09:56 07/14/24 09:56
Last Documented Vital Signs
Temp Pulse Resp BP Pulse Ox
98.0 F 66 20 130/68 98
07/14/24 09:56 07/14/24 12:43 07/14/24 12:43 07/14/24 12:43 07/14/24 12:43
MDM/Problems Addressed
Differential Diagnosis Includes:
Patient presents for recurrent GI bleed. Reviewed prior records. He was just discharged from this hospital yesterday. Hemoglobin is improved today renal functions are stable vital signs are stable. Discussed with GI who will see the patient
*Critical Care Note
Total Time (30-74mins, 75-104mins- exclusive of procedures): Not Applicable
Update Note
Update Note:
Vital signs remained stable. Patient does have melanotic stool. Protonix bolus ordered. Seen by GI who is recommending he stay in the hospital for colonoscopy. Hospitalist notified
ED Attending Note
-
Portions of this chart may have been created with voice recognition software.� Occasional wrong word or��sound alike� substitutions may have occurred due to the inherent limitations of voice recognition software.
Discharge Plan
Departure
Patient Disposition: Admit
Date of Disposition: 07/14/24
Time of Disposition: 13:20
Admit to: Telemetry
Presentation/result/management discussed w/ accepting MD/DO: Hospitalist
Discharge Problem:
Acute GI bleeding
Prescriptions:
No Action
zinc 50 mg Tablet
50 mg PO DAILY
Xifaxan 550 mg Tablet
550 mg PO BID
polyethylene glycol 3350 17 gram Powder In Packet
17 g PO BID Qty: 100 1RF
pantoprazole 40 mg tablet,delayed release (DR/EC)
See Rx Instructions .ROUTE .COMPLEX Qty: 60 1RF
Rx Instructions:
40 mg BID for 2 weeks, followed by 40 mg daily
Referrals:
Saman Dykes MD [Family Provider] -
Interventions
Interventions:
*Risk Screen - Suicide Last Done: 07/14/24 09:56
*Neglect/Abuse Screening Last Done: 07/14/24 09:56
ED- Fall Risk Assessment Last Done: 07/14/24 12:44
VN-Djjycm-Wkryfzchls Assessment Last Done: 07/14/24 12:44
ED- Cardiac Assessment Last Done: 07/14/24 12:44
ED- Pulmonary Assessment Last Done: 07/14/24 12:44
Discharge Date and Time
Print Language: KOREAN
[2024-07-14] MEDS: PROTONIX IV 40 MG IV ×2 (13:35→21:59)
[2024-07-14 13:50] LABS: Direct Bilirubin 1.9 mg/dl (0.0-0.4)
--- NOTE | 2024-07-14 14:02 | HPS.HSE ---
Family Physician
-
Family Physician: Saman Dykes
Chief Complaint
-
GI bleed
History of Present Illness
Patient is a 78-year-old male with past medical history significant for recent GI bleed, and cirrhosis who presented to [facility] ED for reevaluation of recent GI bleed. Patient discharged from hospital yesterday with no obvious bleeding at that
time. After arriving home it is reported that patient had large black bowel movement and will have dizziness with change in positions. Patients at bedside stated there was a coupious amount of black stool last night and she called Dr. Gomez/CHRIS
this morning and reported stool and dizziness and they recommended to bring patient to ED for treatment.
Medical History
Past Medical History
Past Medical History: Reports Other
Additional Past Medical History:
GI bleed
cirrhosis
hepatic encephalopathy
Past Surgical History: Reports None
Social History
Tobacco: Former Smoker
Alcohol: None
Drug: None
Personal:
Living: With Family
Employment: Retired
Family History
Family History: Not pertinent
Allergies / Home Medications
Allergies reflects when Allergies were last updated in [employer].
Home Medications with original date entered in [employer]
Allergy/Medication List:
Allergies
Allergy/AdvReac Type Severity Reaction Status Date / Time
No Known Allergies Allergy Verified 07/14/24 09:57
Home Medications
rifaximin 550 mg tablet (Xifaxan) 550 mg PO BID Liver Issues 07/10/24
zinc sulfate 50 mg zinc (220 mg) tablet 50 mg PO DAILY 07/14/24
Review of Systems
-
History Source: Patient
Constitutional: Reports No Symptoms
EENT: Reports No Symptoms
Respiratory: Reports No Symptoms
Cardiac: Reports No Symptoms
Abdomen/GI: Reports Black Stools (large black BM post discharge yesterday)
: Reports No Symptoms
Musculoskeletal: Reports No Symptoms
Skin: Reports No Symptoms
Neurological: Reports No Symptoms
Endocrine: Reports No Symptoms
Hematologic/Lymphatic: Reports No Symptoms
Psych: Reports No Symptoms
Physical Exam
Vital Signs
Vital Signs
Temp Pulse Resp BP Pulse Ox
98.0 F 66 20 130/68 98
07/14/24 09:56 07/14/24 12:43 07/14/24 12:43 07/14/24 12:43 07/14/24 12:43
Physical Exam
General: Well Developed, Well Nourished, No Apparent Distress, Comfortable and Conversant
HEENT: NormoCephalic, Moist mucous membranes, Atraumatic, PERRLA, [place] Conjunctivae, Nose Appears Normal and Ears Appear Normal
Respiratory: Clear and Non Labored Respirations
Cardiac: S1/S2 and Regular Rhythm; No Murmur, Rub or Gallop
Breast: Deferred by me
GI: Soft, Non Tender, Non Distended and Normal Bowel Sounds; No Organomegaly
Rectal: Hem Positive
Genito-urinary: Deferred by me
Musculoskeletal: No Clubbing, No Cyanosis and No Edema
Skin: No Rash
Neuro: Awake, Alert, Nonfocal/grossly intact and Cranial Nerves Intact
Hematologic/Lymphatic: No Lymphadenopathy
Psych: Calm and Intact Judgment/Insight
Laboratory Results
-
07/14/24 11:04
07/14/24 11:04
Laboratory Results
Total Bilirubin 5.1 mg/dl (0.2-1.3) H 07/14/24 11:04
AST 71 U/L (17-59) H 07/14/24 11:04
ALT 36 U/L (0-50) 07/14/24 11:04
Alkaline Phosphatase 162 U/L (38-126) H 07/14/24 11:04
Data Reviewed
-
Lab Data: Labs Reviewed by me
Impression/Plan
-
IMPRESSION/PLAN:
#GI bleed
Hgb 11.8 Hct 33.9
discharged yesterday for GI bleed and had esophageal varices banded
Large black bowel movement post discharge
- Admit to telemetry for observation
- Consult GI
- NPO for colonoscopy
- IV Protonix
#cirrhosis
unknown etiology
AST 71, ALT 36, Alk Phos 162
- continue Xifaxan
Code Status: Full Code
DVT Prophylaxis: SCDs
--- NOTE | 2024-07-14 15:38 | CON.GI ---
Addendum entered and electronically signed by Hortensia Gomez DO 07/14/24 17:39:
Patient seen and examined independently of BUSINESS ENTERPRISE OFFICER. I agree with her note with my additions below
Moises is a 78-year-old male with cirrhosis from unclear etiology with intermittent hepatic encephalopathy who refuses liver transplant workup who follows with me outpatient as well as Dr. Heredia who was just here from 06/10/2024 to 07/13/2024 coming in
with soft black stools. He underwent EGD on 07/11/[address] Hansen and had grade 2 esophageal varices with no stigmata or bleeding and no blood throughout the EGD into the small bowel. Did have some gastric erosions mild Schatzki's ring.
She did band him. His hemoglobin continue to improve and he was discharged yesterday. He had not had a bowel movement for 2 days prior to discharge. When he got home after getting some MiraLAX in the hospital he had a large black stool and his
, Quyen brought him back. She said when he stands he feels dizzy and therefore we readmitted him despite improvement in labs and stable vital signs for colonoscopy for tomorrow. Usually he is very active and rides his stationary bike 1 hour
a day. He has not done that in a couple of weeks. He does not admit to any black stools until this 1 and his has not been looking at his stools until I told her to watch out for them and not let him flush. She is now more aware of what to
look for. Labs today show a hemoglobin of 11.8 with a platelet count of 100 and creatinine of 0.8 with a BUN of 12, total bilirubin 5.1 majority indirect with a direct bilirubin of 1.9, AST 71, ALT 36, alkaline phosphatase 162.
last colonoscopy was inpatient for a diverticular bleed and had blood throughout so not a good exam. He recently refused outpatient colonoscopy with me and is now agreeable.
Plan:
-- colonoscopy tomorrow since no bleeding source found
-- ppi, antibiotics to decrease bleeding risk and bacterial translocation
-- rifaxamin for HE
-- monitor and chart BMs and check labs in am
Original Note:
Consultation
-
Date/Time Consultation Requested: 07/14/241519
Date/Time Consultation Performed: 07/14/240
Requesting Provider: TONY Puentes
Performing Provider: TONY Antony, Hortensia Gomez,
Reason for Consultation: black stool
Medical History
Chief Complaint / HPI
Chief Complaint: melena
History of Present Illness:
78-year-old male with history of non alcoholic liver cirrhosis, hepatic encephalopathy, who currently follows up with Dr. Gomez/Dr. Heredia with recent admission 07/10/24 til 07/13/24 with black stools. Pt completed EGD 07/[address] Ayala with
grade II EV with no bleeding or stigmata s/p banding mild schatzki's ring, small HH, gastric erosions with no bleeding, erythema in stomach and single duodenal polyp. He was discharged and on return home noted black stool and returns to hospital.
In ER noted heme +. Pt currently admits to memory issues and dizziness but denies dysphagia, GERD, nausea, vomiting, abdominal pain, diarrhea, constipation or red stools. hx colonoscopy 2018 with hemorrhoids, diverticulosis with bleeding from
diverticular opening, injected and clipped. blood in entire colon, lavaged with clearance. On admission hbg 11.8, platelets 100, bili 5, D emilia 1.9, AST 71, ALT 36 alk phos 162. INR 1,45 on 07/10.
Past Medical History
Past Medical History: Cancer (basal cell CA) and Other (cirrhosis, GI bleed, hepatic encephalopathy)
Social History
Tobacco: Non-Smoker
Alcohol: Occasional (in past social 1-2 drinks in 2 weeks )
Personal:
Living: With Family
Employment: Retired
Family History
Family History: Other (denies family hx liver issues )
Allergies / Home Medications
Allergy/AdvReac Type Severity Reaction Status Date / Time
No Known Allergies Allergy Verified 07/14/24 09:57
�Medication �Instructions �Recorded
rifaximin 550 mg tablet (Xifaxan) 550 mg PO BID Liver Issues 07/10/24
zinc sulfate 50 mg zinc (220 mg) 50 mg PO DAILY 07/14/24
tablet
Review of Systems
-
Unable to obtain full review of systems at this time due to: Other (some memory issues )
History Source: Patient
Constitutional: Reports No Symptoms
EENT: Reports No Symptoms
Respiratory: Reports No Symptoms
Cardiac: Reports No Symptoms
Abdomen/GI: Reports Black Stools
: Reports No Symptoms
Musculoskeletal: Reports No Symptoms
Skin: Reports No Symptoms
Neurological: Reports Dizzy and Weakness
Hematologic/Lymphatic: Reports Bleeding
Vital Signs
Temp Pulse Resp BP Pulse Ox
98.0 F 66 20 130/68 98
07/14/24 09:56 07/14/24 12:43 07/14/24 12:43 07/14/24 12:43 07/14/24 12:43
Physical Exam
Exam
General: Well Developed, Well Nourished and No Apparent Distress
HEENT: Other (jaundice )
Respiratory: Clear
Cardiac: Regular Rhythm
GI: Soft, Non Distended and Distended (minimal )
Musculoskeletal: No Clubbing and No Cyanosis
Skin: Warm and Dry
Neuro: Awake, Alert, AO x 3 and Other (occasional forgetfulness )
Psych: Calm
Results
WBC 4.9 10^3/uL (4.8-10.8) 07/14/24 11:04
Hgb 11.8 g/dL (13.0-18.0) L 07/14/24 11:04
Hct 33.9 % (39.0-52.0) L 07/14/24 11:04
MCV 96.3 fL (80.0-94.0) H 07/14/24 11:04
Plt Count 100 10^3/uL (130-400) L D 07/14/24 11:04
Absolute Neuts (auto) 3.3 10^3/uL (1.4-6.5) 07/14/24 11:04
Sodium 137 mmol/L (135-145) 07/14/24 11:04
Potassium 3.8 mmol/L (3.5-5.1) 07/14/24 11:04
Chloride 105 mmol/L (98-107) 07/14/24 11:04
Carbon Dioxide 27 mmol/L (22-30) 07/14/24 11:04
BUN 12 mg/dl (9-20) 07/14/24 11:04
Creatinine 0.8 mg/dL (0.7-1.3) 07/14/24 11:04
Calcium 8.1 mg/dl (8.4-10.2) L 07/14/24 11:04
Total Bilirubin 5.1 mg/dl (0.2-1.3) H 07/14/24 11:04
AST 71 U/L (17-59) H 07/14/24 11:04
ALT 36 U/L (0-50) 07/14/24 11:04
Alkaline Phosphatase 162 U/L (38-126) H 07/14/24 11:04
Diagnostic Image Results:
12/2023 MRI abdomen
1. SEVERE HEPATIC CIRRHOSIS.
2. Small volume of ascites.
3. Severe splenomegaly.
4. Large perisplenic varices and severe splenorenal shunting.
5. Reactive gallbladder distention and wall thickening which appears unchanged.
Prior GI Procedures:
EGD: 07/11 [facility] - Grade II esophageal varices with no bleeding and no
stigmata of recent bleeding. Completely eradicated.
Banded.
- Mild Schatzki ring.
- Small hiatal hernia.
- Gastric erosions with no bleeding and no stigmata of
recent bleeding.
- Erythematous mucosa in the stomach. Biopsied.
- A single duodenal polyp. Biopsied.
- Normal second portion of the duodenum.
Colonoscopy: 04/2018 [facility] - Hemorrhoids found on perianal exam.
- Diverticulosis in the sigmoid colon. There was active
bleeding coming from the diverticular opening. Injected.
Clip was placed.
- Blood in the entire examined colon. Lavaged with 2L
with good clearance.
- The examined portion of the ileum was normal.
- No specimens collected.
Assessment / Plan
-
78-year-old male with history of non alcoholic liver cirrhosis, hepatic encephalopathy, who currently follows up with Dr. Gomez/Dr. Heredia with recent admission 07/10/24 til 07/13/24 with black stools. Pt completed EGD 07/[address] Ayala with
grade II EV with no bleeding or stigmata s/p banding mild schatzki's ring, small HH, gastric erosions with no bleeding, erythema in stomach and single duodenal polyp . He was discharged and on return home noted black stool and returns to hospital.
In ER noted heme +. hx colonoscopy 2017 with hemorrhoids, diverticulosis with bleeding from diverticular opening, injected and clipped. blood in entire colon, lavaged with clearance. On admission hbg 11.8, platelets 100, bili 5, D emilia 1.9, AST 71,
ALT 36 alk phos 162. INR 1,45 on 07/10.
-melana
-cirrhosis
-hepatic encephalopathy
-EV grade II non bleeding on recent EGD 07/10 s/p banding
-recent gastric erosions/gastric erythema
-mild ascites on prior imaging
PLAN:
etiology of bleeding unclear recent EGD as noted with no active bleeding but completed EV banding. Source may be lower GI or SB bleeding
plan for colonoscopy 07/15
for prep tonight
cont to trend hbg and stool record
add INR to recalculate in AM was 16 last admission
cont PPI
cont Xifaxan-- lactulose held in past as per notes pt did not dot tolerate in past
OP follow with Dr. Gomez and Dr. Heredia
will review with Dr. Gomez for NSBB as not started last admission with low BP and recently completed abx course
last HCC screening with MRI in December no masses seen
- Patient scheduled follow up with Dr. Gomez in office Aug 03 at 1pm
-
-
Thank you for consultation and allowing me to participate in the patient's care. Please call the admissions clerk GI physician during the after hours with any questions or concerns.
[2024-07-14] MEDS: NULYTELY SOLUTION 4 LITERS PO (17:08)
--- NOTE | 2024-07-14 18:59 | W.PN.UPDATE ---
Update Note
Progress Note Update
This note serves as an addendum to the H&P by Dana Greene on July 14, 2024.
History of Present Illness
78-year-old male with past medical history significant for recent GI bleed, and cirrhosis who presented to [facility] ED for reevaluation after experiencing dark black stools. Patient discharged from hospital yesterday with no obvious bleeding at
that time. After arriving home it is reported that patient had large black bowel movement and will have dizziness with change in positions. Patient's at bedside stated there was a copious amount of black stool last night and she called Dr. Gomez
(specialty development consultant) this morning and reported stool and dizziness and they recommended to bring patient to the emergency department for further evaluation and treatment.
Vital signs stable
Physical Exam
General: Not in acute distress
HEENT: Normocephalic
Respiratory: Clear to Auscultation Bilaterally
Cardiac: S1/S2 and Regular Rhythm
GI: Soft, Non Tender, Non Distended and Normal Bowel Sounds
Musculoskeletal: No Cyanosis and No Edema
Skin: Warm. Dry.
Neuro: Awake, Alert, Nonfocal/grossly intact and Cranial Nerves Intact
Psych: Calm and Intact Judgment/Insight
Assessment/Plan
Acute melena
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
-Continue PPI BID
-NPO for colonoscopy tomorrow
Liver cirrhosis (of unknown etiology) with prior history of encephalopathy
Mild Ascites
Change in mental status
-Continue Rifaximin 550 mg BID -- patient's does not want patient to get Lactulose
FULL/SCDs/IMU
[2024-07-14] MEDS: XIFAXAN 550 MG PO (21:58)
[2024-07-14] MEDS: NSS (PRESERVATIVE FREE) 10 ML IV (21:59)
[2024-07-14] MEDS: STERILE WATER FOR INJECTION 10 ML IV (21:59)
[2024-07-14] MEDS: ROCEPHIN 1000 MG IV (21:59)
--- NOTE | 2024-07-14 22:40 | PTCARENOTE ---
received pt from ED via stretcher. Pt ambulated to bed with stand by assist, no complaints of dizziness. AAOx2, disoriented to time. Oriented to floor, call louis within reach
[2024-07-15] VITALS (10 sets, daily range): BP systolic 107–139; BP diastolic 52–86; PULSE 65–86
--- NOTE | 2024-07-15 06:03 | PTCARENOTE ---
pt finished all but 1 cup of colonoscopy prep. bowel movements are liquid however still dark brown. pt stating he is nervous about today's procedure, education and emotional support provided. pt now resting comfortably in bed.
--- NOTE | 2024-07-15 07:18 | W.PN.HOSP.TC ---
Today's Communication/Plan
-
A-Fib RVR this AM, spontaneously converted
Coreg
No blood thinners/anticoagulation given bleed
Colonoscopy on hold for now
Assessment / Plan
Assessment / Plan
Physical Exam
General: Not in acute distress
HEENT: Normocephalic
Respiratory: Clear to Auscultation Bilaterally
Cardiac: S1/S2 and Regular Rhythm
GI: Soft, Non Tender, Non Distended and Normal Bowel Sounds
Musculoskeletal: No Cyanosis and No Edema
Skin: Warm. Dry.
Neuro: Awake, Alert, Nonfocal/grossly intact and Cranial Nerves Intact
Psych: Calm and Intact Judgment/Insight
Assessment/Plan
Acute melena
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
-Continue IV PPI
-CLD diet
-Colonoscopy on hold until cardio work-up complete
Liver cirrhosis (of unknown etiology) with prior history of encephalopathy
Mild Ascites
Change in mental status
-Continue Rifaximin 550 mg BID -- patient's does not want patient to get Lactulose
Paroxysmal atrial fibrillation - NEW ONSET
-Was in RVR on 07/15/24 morning
-Given that this is a new diagnosis with RVR this morning, consulted cardiology, appreciate their evaluation and recommendations
-Coreg 3.125 mg BID which will have the double benefit of A-Fib rate control and help with patient's varices
-Not DOAC candidate due to bleeding as above
-Echo
-TSH
FULL/SCDs/IMU
Anticipated Discharge: > 48 hours
Subjective/Interval History
-
Date of Service: July 15, 2024
Patient was seen and examined. He denied any chest pain, abdominal pain or any other symptoms or complaints.
Objective Data
-
Labs:
Laboratory Results
07/15/24
06:00
WBC Pending
Hgb Pending
Hct Pending
Plt Count Pending
PT Pending
INR Pending
Sodium Pending
Potassium Pending
Chloride Pending
Carbon Dioxide Pending
BUN Pending
Creatinine Pending
Glucose Pending
Calcium Pending
Total Bilirubin Pending
AST Pending
ALT Pending
Alkaline Phosphatase Pending
Vital Signs:
Vital Signs
Temp Pulse Resp BP Pulse Ox
97.9 F 61 18 122/69 97
07/15/24 03:48 07/14/24 20:30 07/15/24 03:48 07/14/24 20:00 07/15/24 03:48
I&O
07/14/24 07/15/24 07/16/24
06:59 06:59 06:59
Intake Total 0 / 0
Balance 0 / 0
[2024-07-15] MEDS: PROTONIX IV 40 MG IV ×2 (08:48→20:58)
[2024-07-15] MEDS: ZINC 50 MG PO (08:48)
[2024-07-15] MEDS: XIFAXAN 550 MG PO ×2 (08:48→20:57)
[2024-07-15] MEDS: NSS (PRESERVATIVE FREE) 10 ML IV ×2 (08:48→20:59)
--- NOTE | 2024-07-15 09:00 | PTCARENOTE ---
Pt this am sitting edge of bed, HR alarming 150s-170s Afib with RVR. Pt reports feeling slightly anxious about upcoming colonscopy otherwise asymptomatic. Other VSS. EKG completed, MD aware, GI orders to hold lynette citrate and laxatives, holding on
coloscopy at this time, Pt updated ( very forgetful) spoke to on phone, Pt converted to NSR with PACs. plan of care continues.
[2024-07-15 09:13] LABS: Hematocrit 34.8 % (39.0-52.0); Hemoglobin 11.9 g/dL (13.0-18.0); Mean Corp Hgb Conc. 34.2 g/dL (33.0-37.0); Mean Corpuscular Hgb 33.2 pg (27.0-31.0); Mean Corpuscular Volume 97.2 fL (80.0-94.0); Mean Platelet Volume 12.7 fL (7.4-10.4); Platelet Count 116 10^3/uL (130-400); Red Blood Cell Count 3.58 10^6/uL (4.70-6.10); Red Cell Dist. Width 14.3 % (11.5-14.5); White Blood Cell Count 4.8 10^3/uL (4.8-10.8)
[2024-07-15 09:14] LABS: INR 1.41; PT 17.5 Sec (11.4-14.6)
--- NOTE | 2024-07-15 09:34 | CON.CAR ---
Addendum entered and electronically signed by Yogesh Maldonado MD 07/15/24 10:42:
I saw and examined the patient.
The PATTERN WORKER or PA's note was reviewed and I agree with the note.
Comment: General: Well developed, well nourished in NAD.
Neck: Supple, no JVD, HJR, carotids +2 B/L, no bruits bilaterally.
Heart: Non displaced PMI, RRR, no murmurs, No S3, S4, no rubs.
Lungs: Scattered rhonchi
Extremities: No clubbing, cyanosis or edema bilaterally.
Neuro: Grossly nonfocal, awake, alert and oriented x3.
Moises has a history of cirrhosis and has previously refused liver transplant. He presents with a GI bleed. Cardiology is consulted for atrial fibrillation. He is currently in sinus rhythm. He denies palpitations chest pain or shortness of breath
Not ideal candidate for anticoagulation given cirrhosis and GI bleeding with varices. Will add Coreg which can help with varices. Will check echocardiogram and check TSH.
Original Note:
Consultation
Consultation Request
Date/Time Consultation Performed: 07/15/24
Requesting Provider: Dr. Taylor
Performing Provider: Lety Gunderson PA-C for Dr. Maldonado
Reason for Consultation: atrial fibrillation
Medical History
-
Chief Complaint: dark stool
History of Present Illness:
Patient is a 78 yo M with cirrhosis who has previously refused liver transplant work up who had admission to 07/10-07/13/24 for dark stools/GI bleeding. He underwent EGD 07/11/24 with grade II varices s/p banding. He then presented back to last
evening due to recurrence of dark stool. Was tentatively for colonoscopy today however noted to have significant ectopy and several brief episodes of what appears to be atrial fibrillation. He reports being asymptomatic, denies CP, SOB,
palpitations. States he is active riding his bike everyday as an outpatient. Denies cardiac history.
PMH:
Admission to 07/10/24-07/13/24 for GI bleeding secondary to esophageal varices s/p banding 07/11/24
cirrhosis
Past Medical History
Past Medical History: Other
Social History
Tobacco: Non-Smoker
Alcohol: Former
Personal:
Living: With Family
Employment: Retired
Family History
Family History: Reviewed & Not Pertinent
Allergies / Home Medications
Allergy/AdvReac Type Severity Reaction Status Date / Time
No Known Allergies Allergy Verified 07/14/24 09:57
�Medication �Instructions �Recorded �Confirmed �Type
rifaximin 550 mg tablet (Xifaxan) 550 mg PO BID Liver Issues 07/10/24 07/14/24 History
zinc sulfate 50 mg zinc (220 mg) 50 mg PO DAILY Supplement 07/14/24 07/14/24 History
tablet
Review of Systems
-
History Source: Patient
All other systems: Negative unless noted
Physical Exam
Vital Signs
Temp Pulse Resp BP Pulse Ox
98.7 F 65 18 112/60 99
07/15/24 07:45 07/15/24 07:45 07/15/24 07:45 07/15/24 07:45 07/15/24 07:45
Lab Results
07/15/24 08:28
Physical Exam
General: No Apparent Distress and Comfortable
HEENT: Normocephalic, Anicteric and Moist Mucous Membranes
Respiratory: Clear and Non Labored Respirations
Cardiac: S1/S2 and Irregular Rhythm
GI: Soft, Non Tender, Normal Bowel Sounds and Distended (mild)
Musculoskeletal: No Clubbing, No Cyanosis and Edema (trace of B/L LE)
Skin: Warm and Dry
Neuro: AO x 3
Impression / Plan
-
Primary Floriculture Teacher: none prior to admission
Assessment:
Presentation with dark stool
Paroxysmal atrial fibrillation
PACs/PVCs
Admission to 07/10/24-07/13/24 for GI bleeding secondary to esophageal varices s/p banding 07/11/24
cirrhosis
PERES
Anemia
Hypoalbuminemia
ECHO 07/15/24: pending
Plan:
-Patient with recent admission to [facility] for GI bleeding secondary to esophageal varices status post banding now presents back with dark stool on 07/14. was planned for colonoscopy today but cardiology now consulted due to noted
paroxysmal atrial fibrillation on telemetry, new diagnosis, as well as frequent PACs and PVCs.
-d/w GI. given also with cirrhosis/varices, will plan to initiate coreg 3.125mg BID and follow on tele
-check echo
-check TSH
-[id number] score of 2 for age. not OAC candidate with GI bleeding and esophageal varices
-d/w nursing
Data Reviewed
-
EKG: Tracing Personally Visualized and interpreted
Labs: Labs Reviewed by me
Old Records: Reviewed
[2024-07-15 10:07] LABS: ALT (SGPT) 36 U/L (0-50); AST (SGOT) 66 U/L (17-59); Albumin 2.9 g/dl (3.5-5.0); Alkaline Phosphatase 188 U/L (38-126); Blood Urea Nitrogen 14 mg/dl (9-20); Calcium 8.2 mg/dl (8.4-10.2); Carbon Dioxide 27 mmol/L (22-30); Chloride 104 mmol/L (98-107); Estimated Creatinine Clearance 86 ml/min; Glucose 100 mg/dl (70-99); Potassium 4.1 mmol/L (3.5-5.1); Sodium 138 mmol/L (135-145); eGFR > 60.00
[2024-07-15] MEDS: COREG 3.125 MG PO ×2 (10:29→20:56)
--- NOTE | 2024-07-15 11:56 | W.PN.GI.CBS2 ---
Addendum entered and electronically signed by Juana Burroughs Do, MD 07/15/24 15:13:
I saw and examined the patient.
The PROCEDURE TECH's note was reviewed and I agree with the note.
Comment: His stools were dark brown this AM. RN reported runs of afib with RVR HR 160s. This is new issue for him. bedside. Denies LH, CP or SOB. No further blood in stools. Vitals reviewed exam tall M in NAD conversant and pleasant,
NTTP, NABS. Labs reviewed. Hbg 11.9.
Impression
- Recurrent anemia with dark stools
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
- Hepatic encephalopathy
- Varices
- New afib with RVR 07/14/2024
Recommendations
- C/w PPI IV
- C/w xifaximin. Add ammonia level to tomorrow's labs
- Await ECHO and cardiology eval
- Appreciate Bblocker use
- If appropriate risk stratification anticipate colonoscopy pending cardiology workup
- CLD for now
Will follow with you
-
Original Note:
Today's Communication / Plan
-
etiology of bleeding unclear recent EGD as noted with no active bleeding but completed EV banding. Source may be lower GI or SB bleeding
plan for colonoscopy 07/15 but now with afib this am
pt did complete most Colyte prep but not mag citrate
hold colon for today and await further cards testing
Dr. Tidwell will review timing for colon as patient anxious about stay for weekend
ok for clear diet for now with enlive
hbg stable 11.9
MELD stable at 13
cont PPI
cont Xifaxan-- lactulose held in past as per notes pt did not dot tolerate in past
OP follow with Dr. Gomez and Dr. Heredia
pt now on Coreg 3.125 mg BID with cardiac issues, not ideal candidate for anticoagulation
for echo
will follow
updated
- Patient scheduled follow up with Dr. Gomez in office Aug 03 at 1pm
Assessment / Plan
-
78-year-old male with history of non alcoholic liver cirrhosis, hepatic encephalopathy, who currently follows up with Dr. Gomez/Dr. Heredia with recent admission 07/10/24 til 07/13/24 with black stools. Pt completed EGD 07/[address] Ayala with
grade II EV with no bleeding or stigmata s/p banding mild schatzki's ring, small HH, gastric erosions with no bleeding, erythema in stomach and single duodenal polyp . He was discharged and on return home noted black stool and returns to hospital.
In ER noted heme +. hx colonoscopy 2017 with hemorrhoids, diverticulosis with bleeding from diverticular opening, injected and clipped. blood in entire colon, lavaged with clearance. On admission hbg 11.8, platelets 100, bili 5, D emilia 1.9, AST 71,
ALT 36 alk phos 162. INR 1,45 on 07/10.
-melana
-new onset afib 07/15 AM
-cirrhosis -meld 13 based on 07/15 labs
-hepatic encephalopathy
-EV grade II non bleeding on recent EGD 07/10 s/p banding
-recent gastric erosions/gastric erythema
-mild ascites on prior imaging
PLAN:
etiology of bleeding unclear recent EGD as noted with no active bleeding but completed EV banding. Source may be lower GI or SB bleeding
plan for colonoscopy 07/15 but now with afib this am
pt did complete most Colyte prep but not mag citrate
hold colon for today as afib and still some irregular beats
appreciate cards eval and for echo
pt now on Coreg 3.125 mg BID with cardiac issues, not ideal candidate for anticoagulation
Dr. Tidwell will review timing for colon as patient anxious about stay for weekend
ok for clear diet for now with enlive
hbg stable 11.9
MELD stable at 13
cont PPI
cont Xifaxan-- lactulose held in past as per notes pt did not dot tolerate in past
OP follow with Dr. Gomez and Dr. Heredia
updated
- Patient scheduled follow up with Dr. Gomez in office Aug 03 at 1pm
Subjective
Subjective
Date of Service: July 15, 2024
several stools overnight last liquid brown per staff, took most of prep overnight. Was due for mag citrate this am but developed afib with RVR with card evaluation completed currently NPO-
Objective
Data Reviewed
Laboratory Data:
Laboratory Results
07/15/24 08:28
07/15/24 08:28
Laboratory Results
PT 17.5 Sec (11.4-14.6) H 07/15/24 08:28
INR 1.41 07/15/24 08:28
Total Bilirubin 5.0 mg/dl (0.2-1.3) H 07/15/24 08:28
AST 66 U/L (17-59) H 07/15/24 08:28
ALT 36 U/L (0-50) 07/15/24 08:28
Alkaline Phosphatase 188 U/L (38-126) H 07/15/24 08:28
Vital Signs and I&O:
Vital Signs
Temp Pulse Resp BP Pulse Ox
97.7 F 80 18 139/70 98
07/15/24 11:02 07/15/24 11:02 07/15/24 11:02 07/15/24 11:02 07/15/24 11:02
I&O
07/14/24 07/15/24 07/16/24
06:59 06:59 06:59
Intake Total 0 / 0
Balance 0 / 0
Physical Exam
Physical Exam
HEENT: Anicteric and Moist mucous membranes
Cardiology: Normal Sinus Rhythm (with some irregular beats )
Pulmonary: Clear
GI: Soft, Non Distended and Non Tender
Neuro: Non Focal
--- NOTE | 2024-07-15 17:13 | CM ---
Alert awake oriented patient who lives with his SO Quyen who lives in a 2 story home with 3 step to enter and 14 steps to bed and bathroom. He is independent in driving and in all activities of daily living.He was offered VN he declined need.No
adaptive devices.[place] letter given explained. Pt signed [place] letter on chart.
No VN hx / No SNF history
Pharmacy [facility]
PCP DR Dykes
PLAN Home Declined VN
[2024-07-15] MEDS: ROCEPHIN 1000 MG IV (21:01)
[2024-07-15] MEDS: STERILE WATER FOR INJECTION 10 ML IV (21:02)
[2024-07-16 03:19] VITALS: BP 120/56
[2024-07-16 07:00] VITALS: BP 101/56
[2024-07-16] MEDS: COREG 3.125 MG PO ×2 (08:10→20:18)
[2024-07-16] MEDS: XIFAXAN 550 MG PO ×2 (08:13→20:19)
[2024-07-16] MEDS: NSS (PRESERVATIVE FREE) 10 ML IV ×2 (08:13→20:19)
[2024-07-16] MEDS: ZINC 50 MG PO (08:13)
[2024-07-16] MEDS: PROTONIX IV 40 MG IV ×2 (08:13→20:19)
[2024-07-16 08:44] LABS: Hematocrit 34.7 % (39.0-52.0); Hemoglobin 12.3 g/dL (13.0-18.0); Mean Corp Hgb Conc. 35.4 g/dL (33.0-37.0); Mean Corpuscular Hgb 33.8 pg (27.0-31.0); Mean Corpuscular Volume 95.3 fL (80.0-94.0); Mean Platelet Volume 12.2 fL (7.4-10.4); Platelet Count 155 10^3/uL (130-400); Red Blood Cell Count 3.64 10^6/uL (4.70-6.10); Red Cell Dist. Width 14.1 % (11.5-14.5); White Blood Cell Count 6.2 10^3/uL (4.8-10.8)
[2024-07-16 08:57] LABS: INR 1.42; PT 17.6 Sec (11.4-14.6)
[2024-07-16 08:59] LABS: Ammonia < 9 umol/L (9-30)
[2024-07-16 09:23] LABS: ALT (SGPT) 32 U/L (0-50); AST (SGOT) 64 U/L (17-59); Albumin 2.9 g/dl (3.5-5.0); Alkaline Phosphatase 168 U/L (38-126); Blood Urea Nitrogen 16 mg/dl (9-20); Carbon Dioxide 27 mmol/L (22-30); Chloride 103 mmol/L (98-107); Estimated Creatinine Clearance 86 ml/min; Glucose 110 mg/dl (70-99); Potassium 3.8 mmol/L (3.5-5.1); Sodium 136 mmol/L (135-145); Total Bilirubin 5.2 mg/dl (0.2-1.3); Total Protein 5.9 g/dl (6.3-8.2); eGFR > 60.00
--- NOTE | 2024-07-16 11:06 | W.PN.GI.CBS2 ---
Today's Communication / Plan
-
CLD
Prep tomorrow for anticipated colonoscopy tomorrow
Assessment / Plan
-
78-year-old male with history of non alcoholic liver cirrhosis, hepatic encephalopathy, who currently follows up with Dr. Gomez/Dr. Heredia with recent admission 07/10/24 til 07/13/24 with black stools. Pt completed EGD 07/[address] Ayala with
grade II EV with no bleeding or stigmata s/p banding mild schatzki's ring, small HH, gastric erosions with no bleeding, erythema in stomach and single duodenal polyp . He was discharged and on return home noted black stool and returns to hospital.
In ER noted heme +. hx colonoscopy 2017 with hemorrhoids, diverticulosis with bleeding from diverticular opening, injected and clipped. blood in entire colon, lavaged with clearance. On admission hbg 11.8, platelets 100, bili 5, D emilia 1.9, AST 71,
ALT 36 alk phos 162. INR 1,45 on 07/10.
Impression
- Recurrent anemia with dark stools
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
- Hepatic encephalopathy
- Varices
- New afib with RVR 07/14/2024
Recommendations
- C/w PPI IV
- C/w xifaximin
- Appreciate cardiology input ok to proceed with colonoscopy
- Appreciate Bblocker use coreg also good for variceal ppx
- CLD for now and plan to start Golytle tomorrow for colonoscopy Thursday
Will follow with you
Subjective
Subjective
Date of Service: July 16, 2024
No acute issues overnight. He denies abd pain, nausea/vomiting. Tolerating diet.
Objective
Data Reviewed
Laboratory Data:
Laboratory Results
07/16/24 08:32
07/16/24 08:32
Laboratory Results
PT 17.6 Sec (11.4-14.6) H 07/16/24 08:32
INR 1.42 07/16/24 08:32
Total Bilirubin 5.2 mg/dl (0.2-1.3) H 07/16/24 08:32
AST 64 U/L (17-59) H 07/16/24 08:32
ALT 32 U/L (0-50) 07/16/24 08:32
Alkaline Phosphatase 168 U/L (38-126) H 07/16/24 08:32
Vital Signs and I&O:
Vital Signs
Temp Pulse Resp BP Pulse Ox
97.8 F 70 16 130/67 96
07/16/24 07:00 07/16/24 08:10 07/16/24 07:00 07/16/24 08:10 07/16/24 07:00
I&O
07/15/24 07/16/24 07/17/24
06:59 06:59 06:59
Intake Total 0 / 0 960 / 960 480 / 480
Balance 0 / 0 960 / 960 480 / 480
Physical Exam
Physical Exam
GEN: No acute distress, conversant, pleasant
HEENT: anicteric, extraocular movements intact, clear oropharynx without exudates
GI: soft, mildly distended, not tender to palpation, normal active bowel sounds, no hepatosplenomegaly
EXT: warm, well perfused, trace edema bilaterally
NEURO: AAOx2, non-focal
--- NOTE | 2024-07-16 11:26 | W.PN.CARDCBS ---
Addendum entered and electronically signed by Yogesh Maldonado MD 07/16/24 13:02:
I saw and examined the patient.
The GROUP MARKETING VP or PA's note was reviewed and I agree with the note.
Comment: General: Well developed, well nourished in NAD.
Neck: Supple, no JVD, HJR, carotids +2 B/L, no bruits bilaterally.
Heart: Non displaced PMI, RRR, no murmurs, No S3, S4, no rubs.
Lungs: Scattered rhonchi
Extremities: No clubbing, cyanosis or edema bilaterally.
Neuro: Grossly nonfocal, awake, alert and oriented x3.
Remains in sinus rhythm. Okay for colonoscopy doubt further testing. Not a candidate for anticoagulation given active GI bleeding.
Will sign off, call with questions
Original Note:
Today's Communication / Plan
-
continue coreg. ectopy much improved on review of tele today
colonoscopy in AM
follow mentation
Impression / Plan
-
Primary Learning Design Specialist: none prior to admission
Assessment:
Presentation with dark stool
Paroxysmal atrial fibrillation
PACs/PVCs
Admission to 07/10/24-07/13/24 for GI bleeding secondary to esophageal varices s/p banding 07/11/24
cirrhosis
PERES
Anemia
Hypoalbuminemia
ECHO 07/15/24: EF 60 to 65%, mild MR, aortic sclerosis, moderate TR, PAP 41 mmHg
Plan:
-Patient with recent admission to [facility] for GI bleeding secondary to esophageal varices status post banding now presents back with dark stool on 07/14.
-Plan for colonoscopy in a.m.
-Had paroxysmal A-fib as well as frequent ectopy including PACs and PVCs on review of telemetry yesterday. coreg 3.125mg BID added and overnight remains in sinus rhythm with much less ectopy
-not OAC candidate given GI bleeding and esophageal varices
-echo with results as above
-TSH WNL
-patient very concerned about his confusion, which does appear to be improving. ammonia <9. defer work up to primary service
Progress Note - Learning Design Specialist
Subjective
Date of Service: July 16, 2024
no palpitations
Objective
Labs:
07/16/24 08:32
07/16/24 08:32
Labs
Hgb 12.3 g/dL (13.0-18.0) L 07/16/24 08:32
Hct 34.7 % (39.0-52.0) L 07/16/24 08:32
Plt Count 155 10^3/uL (130-400) D 07/16/24 08:32
PT 17.6 Sec (11.4-14.6) H 07/16/24 08:32
INR 1.42 07/16/24 08:32
Sodium 136 mmol/L (135-145) 07/16/24 08:32
Potassium 3.8 mmol/L (3.5-5.1) 07/16/24 08:32
BUN 16 mg/dl (9-20) 07/16/24 08:32
Creatinine 0.8 mg/dL (0.7-1.3) 07/16/24 08:32
Glucose 110 mg/dl (70-99) H 07/16/24 08:32
Vital Signs and I&O:
Vital Signs
Temp Pulse Resp BP Pulse Ox
97.8 F 70 16 130/67 96
07/16/24 07:00 07/16/24 08:10 07/16/24 07:00 07/16/24 08:10 07/16/24 07:00
Vital Signs
Temp Pulse Resp BP Pulse Ox
97.8 F 70 16 130/67 96
07/16/24 07:00 07/16/24 08:10 07/16/24 07:00 07/16/24 08:10 07/16/24 07:00
Intake & Output
07/14/24 07/15/24 07/16/24 07/17/24
07:59 07:59 07:59 07:59
Intake Total 0 / 0 960 / 960 480 / 480
Balance 0 / 0 960 / 960 480 / 480
Physical Exam
Physical Exam
GEN: No distress, awake, alert, oriented x3
HEENT: supple, anicteric, mmm, eomi
LUNGS: CTA B/L, no wheezes/rales
CV: Reg, S1/S2, no murmur
ABD: soft, BS+, NT/ND
EXT: No cyanosis, clubbing, edema
NEURO: Gross non-focal
SKIN: Warm, pink, dry. No rash
[2024-07-16 12:00] VITALS: BP 113/62
--- NOTE | 2024-07-16 12:34 | CM ---
CM continues to follow for discharge planning needs. Pt for colonoscopy in AM.
Plan: CM to follow with anticipated discharge to home with no needs.
[2024-07-16 15:19] VITALS: BP 121/65
--- NOTE | 2024-07-16 16:13 | W.PN.HOSP.TC ---
Today's Communication/Plan
-
Stable
Bowel prep tomorrow for colonoscopy on Thursday
Assessment / Plan
Assessment / Plan
Physical Exam
General: Not in acute distress
HEENT: Normocephalic
Respiratory: Clear to Auscultation Bilaterally
Cardiac: S1/S2 and Regular Rhythm
GI: Soft, Non Tender, Non Distended and Normal Bowel Sounds
Musculoskeletal: No Cyanosis and No Edema
Skin: Warm. Dry.
Neuro: Awake, Alert, Nonfocal/grossly intact and Cranial Nerves Intact
Psych: Calm and Intact Judgment/Insight
Assessment/Plan
Acute melena
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
-Continue with intravenous PPI
-CLD diet
-Plan for Golytle to be given on 07/16/24 for colonoscopy on 07/18/24
-Colonoscopy on hold until cardio work-up complete
Liver cirrhosis (of unknown etiology) with prior history of encephalopathy
Mild Ascites
Change in mental status
-Continue Rifaximin 550 mg BID -- patient's does not want patient to get Lactulose
Paroxysmal atrial fibrillation - NEW ONSET
-Was in RVR on 07/15/24 morning
-Given that this is a new diagnosis with RVR, consulted cardiology, appreciate their evaluation and recommendations
-Coreg 3.125 mg BID which will have the dual benefit of A-Fib rate control and help with patient's varices
-Not DOAC candidate due to bleeding as above
-Echo: EF 60 to 65%, mild MR, aortic sclerosis, moderate TR, PAP 41 mmHg
-TSH normal at 2.70
FULL/SCDs/IMU
Anticipated Discharge: > 48 hours
Subjective/Interval History
-
Date of Service: July 16, 2024
Patient was seen and examined. He denied any chest pain, shortness of breath or any other complaints.
Objective Data
-
Labs:
Laboratory Results
07/16/24
08:32
WBC 6.2
Hgb 12.3 L
Hct 34.7 L
Plt Count 155 D
PT 17.6 H
INR 1.42
Sodium 136
Potassium 3.8
Chloride 103
Carbon Dioxide 27
BUN 16
Creatinine 0.8
Glucose 110 H
Calcium 8.0 L
Total Bilirubin 5.2 H
AST 64 H
ALT 32
Alkaline Phosphatase 168 H
Vital Signs:
Vital Signs
Temp Pulse Resp BP Pulse Ox
98 F 64 16 121/65 98
07/16/24 15:19 07/16/24 15:19 07/16/24 15:19 07/16/24 15:19 07/16/24 15:19
I&O
07/15/24 07/16/24 07/17/24
06:59 06:59 06:59
Intake Total 0 / 0 960 / 960 840 / 840
Balance 0 / 0 960 / 960 840 / 840
[2024-07-16 19:33] VITALS: BP 133/69
[2024-07-16] MEDS: ROCEPHIN 1000 MG IV (21:36)
[2024-07-16] MEDS: STERILE WATER FOR INJECTION 10 ML IV (21:37)
[2024-07-16 23:21] VITALS: BP 112/59
[2024-07-17 03:34] VITALS: BP 117/69
[2024-07-17 07:30] VITALS: BP 114/51
[2024-07-17] MEDS: ZINC 50 MG PO (07:36)
[2024-07-17] MEDS: XIFAXAN 550 MG PO ×2 (07:36→20:23)
[2024-07-17] MEDS: COREG 3.125 MG PO ×2 (07:36→20:23)
[2024-07-17] MEDS: PROTONIX IV 40 MG IV ×2 (07:38→20:24)
[2024-07-17] MEDS: NSS (PRESERVATIVE FREE) 10 ML IV ×2 (07:39→20:24)
--- NOTE | 2024-07-17 08:36 | CM ---
Pt is scheduled for a colonoscopy tomorrow, 07/18/2023; anticipate discharge to home with no needs.
CM will continue to follow.
[2024-07-17 08:42] LABS: ALT (SGPT) 27 U/L (0-50); AST (SGOT) 51 U/L (17-59); Albumin 2.2 g/dl (3.5-5.0); Alkaline Phosphatase 146 U/L (38-126); Blood Urea Nitrogen 13 mg/dl (9-20); Calcium 7.6 mg/dl (8.4-10.2); Carbon Dioxide 28 mmol/L (22-30); Chloride 102 mmol/L (98-107); Estimated Creatinine Clearance 99 ml/min; Glucose 95 mg/dl (70-99); Magnesium 1.9 mg/dl (1.6-2.3); Potassium 3.6 mmol/L (3.5-5.1); Sodium 134 mmol/L (135-145); Total Protein 4.8 g/dl (6.3-8.2); eGFR > 60.00
--- NOTE | 2024-07-17 08:47 | W.PN.HOSP.TC ---
Today's Communication/Plan
-
Lower extremity ultrasound
Colonoscopy tomorrow
Assessment / Plan
Assessment / Plan
Physical Exam
General: Not in acute distress
HEENT: Normocephalic
Respiratory: Clear to Auscultation Bilaterally
Cardiac: S1/S2 and Regular Rhythm
GI: Soft, Non Tender, Non Distended and Normal Bowel Sounds
Musculoskeletal: No Cyanosis. 2+ pitting edema bilaterally.
Skin: Warm. Dry.
Neuro: Awake, Alert, Nonfocal/grossly intact and Cranial Nerves Intact
Psych: Calm and Intact Judgment/Insight
Assessment/Plan
Acute melena
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
-Continue with intravenous PPI BID
-CLD diet
-Plan for Golytle to be given on 07/16/24 for colonoscopy on 07/18/24
-Colonoscopy on hold until cardio work-up complete
Liver cirrhosis (of unknown etiology) with prior history of encephalopathy
Mild Ascites
Change in mental status
-Continue Rifaximin 550 mg BID -- patient's does not want patient to get Lactulose
Paroxysmal atrial fibrillation - NEW ONSET
-Was in RVR on 07/15/24 morning
-Given that this is a new diagnosis with RVR, consulted cardiology, appreciate their evaluation and recommendations
-Coreg 3.125 mg BID which will have the dual benefit of A-Fib rate control and help with patient's varices
-Not DOAC candidate due to bleeding as above
-Echo: EF 60 to 65%, mild MR, aortic sclerosis, moderate TR, PAP 41 mmHg
-TSH normal at 2.70
Bilateral Lower Extremity Edema
-Could be from low serum albumin
-Lower extremity ultrasound
FULL/SCDs/IMU
Anticipated Discharge: 24 - 48 hours
Subjective/Interval History
-
Date of Service: July 17, 2024
Patient was seen and examined. He denied any complaints.
Objective Data
-
Labs:
Laboratory Results
07/17/24
06:40
WBC Pending
Hgb Pending
Hct Pending
Plt Count Pending
Sodium 134 L
Potassium 3.6
Chloride 102
Carbon Dioxide 28
BUN 13
Creatinine 0.7
Glucose 95
Calcium 7.6 L
Total Bilirubin 4.0 H
AST 51
ALT 27
Alkaline Phosphatase 146 H
Vital Signs:
Vital Signs
Temp Pulse Resp BP Pulse Ox
97.7 F 66 18 114/51 98
07/17/24 07:30 07/17/24 07:30 07/17/24 07:30 07/17/24 07:30 07/17/24 07:30
I&O
07/16/24 07/17/24 07/18/24
06:59 06:59 06:59
Intake Total 960 / 960 1320 / 1320
Output Total 920 / 920
Balance 960 / 960 400 / 400
[2024-07-17 09:02] LABS: Hematocrit 27.8 % (39.0-52.0); Hemoglobin 9.8 g/dL (13.0-18.0); Mean Corp Hgb Conc. 35.3 g/dL (33.0-37.0); Mean Corpuscular Hgb 33.9 pg (27.0-31.0); Mean Corpuscular Volume 96.2 fL (80.0-94.0); Mean Platelet Volume 12.2 fL (7.4-10.4); Platelet Count 106 10^3/uL (130-400); Red Blood Cell Count 2.89 10^6/uL (4.70-6.10)
[2024-07-17] MEDS: DULCOLAX 10 MG PO (09:44)
[2024-07-17] MEDS: NULYTELY SOLUTION 2 LITERS PO ×2 (09:44→14:47)
--- NOTE | 2024-07-17 10:32 | W.PN.GI.CBS2 ---
Today's Communication / Plan
-
Golylte prep today
Anticipate colonoscopy tomorrow
Will follow with you
Assessment / Plan
-
78-year-old male with history of non alcoholic liver cirrhosis, hepatic encephalopathy, who currently follows up with Dr. Gomez/Dr. Heredia with recent admission 07/10/24 til 07/13/24 with black stools. Pt completed EGD 07/[address] Ayala with
grade II EV with no bleeding or stigmata s/p banding mild schatzki's ring, small HH, gastric erosions with no bleeding, erythema in stomach and single duodenal polyp . He was discharged and on return home noted black stool and returns to hospital.
In ER noted heme +. hx colonoscopy 2017 with hemorrhoids, diverticulosis with bleeding from diverticular opening, injected and clipped. blood in entire colon, lavaged with clearance. On admission hbg 11.8, platelets 100, bili 5, D emilia 1.9, AST 71,
ALT 36 alk phos 162. INR 1,45 on 07/10.
Impression
- Recurrent anemia with dark stools
- Pancytopenia
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
- Hepatic encephalopathy
- Varices
- New afib with RVR 07/14/2024
Recommendations
- C/w PPI IV BID
- C/w Xifaxan
- Appreciate cardiology input ok to proceed with colonoscopy
- Appreciate Bblocker use coreg also good for variceal ppx
- CLD for now and plan to start Golytle today for colonoscopy Thursday
- Add on iron panel
Will follow with you
Subjective
Subjective
Date of Service: July 17, 2024
He has no active complaints this AM. Passed brown BM yesterday and day prior. No abd pain, nausea or vomiting
Objective
Data Reviewed
Laboratory Data:
Laboratory Results
07/17/24 06:40
07/17/24 06:40
Laboratory Results
PT 17.6 Sec (11.4-14.6) H 07/16/24 08:32
INR 1.42 07/16/24 08:32
Magnesium 1.9 mg/dl (1.6-2.3) 07/17/24 06:40
Total Bilirubin 4.0 mg/dl (0.2-1.3) H 07/17/24 06:40
AST 51 U/L (17-59) 07/17/24 06:40
ALT 27 U/L (0-50) 07/17/24 06:40
Alkaline Phosphatase 146 U/L (38-126) H 07/17/24 06:40
Vital Signs and I&O:
Vital Signs
Temp Pulse Resp BP Pulse Ox
97.7 F 66 18 114/51 98
07/17/24 07:30 07/17/24 07:30 07/17/24 07:30 07/17/24 07:30 07/17/24 07:30
I&O
07/16/24 07/17/24 07/18/24
06:59 06:59 06:59
Intake Total 960 / 960 1320 / 1320
Output Total 920 / 920
Balance 960 / 960 400 / 400
Physical Exam
Physical Exam
GEN: No acute distress, conversant, pleasant
HEENT: anicteric, extraocular movements intact, clear oropharynx without exudates
GI: soft, mildly-distended, not tender to palpation, normal active bowel sounds, no hepatosplenomegaly
EXT: warm, well perfused, no edema bilaterally
NEURO: AAOx3, non-focal
[2024-07-17 11:02] LABS: Iron 63 ug/dl (49-181)
[2024-07-17 11:11] LABS: Percent Saturation 36 % (20-50); Total Iron Binding Capacity 172 ug/dl (261-462)
[2024-07-17 11:18] VITALS: BP 110/64
[2024-07-17 12:09] LABS: Folate 6.9 ng/ml (2.76-20); Vitamin B12 923 pg/ml (239-931)
[2024-07-17 15:15] VITALS: BP 120/61
[2024-07-17] MEDS: OCEAN, SALINE MIST 1 SPRAYS NASAL (15:24)
[2024-07-17 19:06] VITALS: BP 133/65
[2024-07-17] MEDS: ROCEPHIN 1000 MG IV (23:08)
[2024-07-17] MEDS: STERILE WATER FOR INJECTION 10 ML IV (23:08)
[2024-07-17 23:51] VITALS: BP 144/78
[2024-07-18] VITALS (11 sets, daily range): BP systolic 98–132; BP diastolic 51–92; BMI 24.7
[2024-07-18 07:27] LABS: Hematocrit 30.9 % (39.0-52.0); Mean Corp Hgb Conc. 35.6 g/dL (33.0-37.0); Mean Corpuscular Hgb 33.5 pg (27.0-31.0); Mean Corpuscular Volume 94.2 fL (80.0-94.0); Mean Platelet Volume 12.5 fL (7.4-10.4); Platelet Count 130 10^3/uL (130-400); Red Blood Cell Count 3.28 10^6/uL (4.70-6.10); Red Cell Dist. Width 14.3 % (11.5-14.5)
[2024-07-18 07:54] LABS: ALT (SGPT) 29 U/L (0-50); AST (SGOT) 58 U/L (17-59); Albumin 2.5 g/dl (3.5-5.0); Alkaline Phosphatase 156 U/L (38-126); Blood Urea Nitrogen 10 mg/dl (9-20); Calcium 7.8 mg/dl (8.4-10.2); Carbon Dioxide 25 mmol/L (22-30); Chloride 104 mmol/L (98-107); Estimated Creatinine Clearance 99 ml/min; Glucose 92 mg/dl (70-99); Potassium 3.4 mmol/L (3.5-5.1); Sodium 136 mmol/L (135-145); Total Bilirubin 3.9 mg/dl (0.2-1.3); Total Protein 5.3 g/dl (6.3-8.2); eGFR > 60.00
[2024-07-18] MEDS: COREG 3.125 MG PO (08:20)
[2024-07-18] MEDS: FLUSH (NSS) 1 FLUSH IV (08:21)
[2024-07-18] MEDS: XIFAXAN 550 MG PO (08:21)
[2024-07-18] MEDS: ZINC 50 MG PO (08:21)
[2024-07-18] MEDS: NSS (PRESERVATIVE FREE) 10 ML IV (08:21)
[2024-07-18] MEDS: PROTONIX IV 40 MG IV (08:21)
--- NOTE | 2024-07-18 10:46 | PTCARENOTE ---
Pt returned from PACU via stretcher s/p colonoscopy; accompanied by volunteer. Pt awake and alert, oriented to self/place. JORDAN well; able to transfer to bed with minimal assistance, no c/o weakness/dizziness. Placed back on telemetry-NSR with
PAC's. On room air- no SOB noted. Abd soft, no c/o abd discomfort- to start regular diet. Resting in bed at present, no c/o. Will continue to monitor.
--- NOTE | 2024-07-18 11:12 | W.PN.HOSP.TC ---
Today's Communication/Plan
-
Discharge today
Assessment / Plan
Assessment / Plan
Physical Exam
General: Not in acute distress
HEENT: Normocephalic
Respiratory: Clear to Auscultation Bilaterally
Cardiac: S1/S2 and Regular Rhythm
GI: Soft, Non Tender, Non Distended and Normal Bowel Sounds
Musculoskeletal: No Cyanosis. 2+ pitting edema bilaterally.
Skin: Warm. Dry.
Neuro: Awake, Alert, Nonfocal/grossly intact and Cranial Nerves Intact
Psych: Calm and Intact Judgment/Insight
Assessment/Plan
Acute melena
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
-Continue with intravenous PPI BID
-CLD diet
-Plan for [place] to be given on 07/16/24 for colonoscopy on 07/18/24
-Colonoscopy completed on 07/18/24
-Per GI no active bleeding, just hemorrhoids, diverticulosis, and some rectal varices
-Per GI, patient can be discharged today
-Patient's Quyen has been updated and agrees with the plan
Liver cirrhosis (of unknown etiology) with prior history of encephalopathy
Mild Ascites
-Continue Rifaximin 550 mg BID -- patient's does not want patient to get Lactulose
Paroxysmal atrial fibrillation - NEW ONSET
-Was in [facility] on 07/15/24 morning
-Given that this is a new diagnosis with [facility], consulted cardiology, appreciate their evaluation and recommendations
-Increase Coreg to 6.25 mg BID (which will have the dual benefit of A-Fib rate control and help with patient's varices) due to episode of rapid A-Fib again which resolved now
-Not DOAC candidate due to bleeding as above
-Echo: EF 60 to 65%, mild MR, aortic sclerosis, moderate TR, PAP 41 mmHg
-TSH normal at 2.70
Hypokalemia
-Replaced
-Provide supplementation on discharge
-Repeat BMP and Magnesium outpatient
Bilateral Lower Extremity Edema
-Could be from low serum albumin
-No DVT on lower extremity ultrasound
FULL/SCDs/IMU
More than 30 minutes spent in discharge including
Final examination of the patient
Summarizing hospital stay
Instructions for continuing care to all relevant caregivers
Preparation of discharge records, prescriptions, and referral forms
Total time spent (in minutes): 43
Anticipated Discharge: Today
Subjective/Interval History
-
Date of Service: July 18, 2024
Brief run of A-Fib today
-Coreg 6.25 BID
Objective Data
-
Labs:
Laboratory Results
07/18/24
05:57
WBC 4.0 L
Hgb 11.0 L
Hct 30.9 L
Plt Count 130 D
Sodium 136
Potassium 3.4 L
Chloride 104
Carbon Dioxide 25
BUN 10
Creatinine 0.7
Glucose 92
Calcium 7.8 L
Total Bilirubin 3.9 H
AST 58
ALT 29
Alkaline Phosphatase 156 H
Vital Signs:
Vital Signs
Temp Pulse Resp BP Pulse Ox
97.6 F 68 16 122/71 96
07/18/24 10:30 07/18/24 10:30 07/18/24 10:30 07/18/24 10:30 07/18/24 10:30
I&O
07/17/24 07/18/24 07/19/24
06:59 06:59 06:59
Intake Total 1320 / 1320 1440 / 1440
Output Total 920 / 920 450 / 450
Balance 400 / 400 990 / 990
--- NOTE | 2024-07-18 15:30 | CM ---
MD indicated ready for discharge today.
Spoke with pt given IMM explained and signed on chart.
Quyen also notified he was changed to inpatient.
Pt and ready for his discharge today.
Offered VN they declined need.
said that sister in law Ana will be driving him home today.
PLAN Home no needs
--- NOTE | 2024-07-18 16:34 | PTCARENOTE ---
Pt awake and alert, oriented to self/year/birthdate ; occ to [facility]. pt [place]. Forgetful/confused conversation; pleasant and cooperative. Pt JORDAN well, OOB in chair; ambulates to BR with minimal assistance; denies weakness/dizziness.
Telemetry:currently NSR 60's. On room air- pulse ox 100%, no SOB noted. Abd soft, amrita reg diet. Voiding in BR without difficulty. Resting comfortably at present. Will continue to monitor.
[2024-07-18] MEDS: KCL 40 MEQ PO (16:43)
== END 2024-07-18 18:00 | disposition home or self-care (01) | DRG 393 ==
LOC: 4 EAST ACU 19:49
PROVIDERS: Internal Medicine Gastroenterology; Nurse Practitioner Adult Health; Nurse Practitioner Family; ADMITTING PHYSICIAN Hospitalist; CONSULT PHYSICIAN Internal Medicine; CONSULT PHYSICIAN Internal Medicine Cardiovascular Disease; EMERGENCY PHYSICIAN Emergency Medicine; FAMILY PHYSICIAN Internal Medicine
PROC: 0DJD8ZZ Inspection of Lower Intestinal Tract, Via Natural or Artificial Opening Endoscopic (ICD-10-PCS; 2024-07-18)
DX: K64.8 Other hemorrhoids (principal); K57.31 Diverticulosis of large intestine without perforation or abscess with bleeding; D61.818 Other pancytopenia; I85.10 Secondary esophageal varices without bleeding; R18.8 Other ascites; K74.60 Unspecified cirrhosis of liver; K76.82 Hepatic encephalopathy; E88.09 Other disorders of plasma-protein metabolism, not elsewhere classified; I48.0 Paroxysmal atrial fibrillation; I49.3 Ventricular premature depolarization; E87.6 Hypokalemia; I86.8 Varicose veins of other specified sites; D64.9 Anemia, unspecified; Z87.891 Personal history of nicotine dependence
CPT/HCPCS: 80053; 82140; 82248; 82607; 82728; 82746; 83540; 83550; 83735; 84443; 85025; 85027; 85610; 93005; 93306; 93970; 96374; 99285

== ENCOUNTER → 2024-09-12 15:02 | Outpatient (REF) | payer OTHER, SELFPAY | LOC: RAD 15:02 | PROVIDERS: ATTENDING PHYSICIAN Internal Medicine; FAMILY PHYSICIAN Internal Medicine | DX: K74.60 Unspecified cirrhosis of liver (principal) | CPT/HCPCS: 76700; 93975 ==

== ENCOUNTER 2024-09-29 06:24 | Day surgery (SDC) | payer OTHER, SELFPAY | END 2024-09-29 13:15 | disposition home or self-care (01) | LOC: GI 06:24 | PROVIDERS: ATTENDING PHYSICIAN Internal Medicine | DX: K44.9 Diaphragmatic hernia without obstruction or gangrene (principal); K22.4 Dyskinesia of esophagus; K31.89 Other diseases of stomach and duodenum; I85.00 Esophageal varices without bleeding; K31.9 Disease of stomach and duodenum, unspecified | CPT/HCPCS: 43251; 88305 ==

== ENCOUNTER → 2024-12-20 11:41 | Outpatient (REF) | payer OTHER, SELFPAY ==
[2024-12-20 12:28] LABS: % Basophils 0.8 % (0-2); % Eosinophils 1.4 % (0-6); % Immature Granulocytes 0.2 % (0-0.5); % Lymphocytes 16.9 % (20.5-51.1); % Monocytes 7.6 % (1.7-9.3); % Neutrophils 73.1 % (42.2-75.2); Absolute Eosinophils 0.1 10^3/uL (0-0.7); Absolute Lymphocytes 0.9 10^3/uL (1.2-3.4); Absolute Monocytes 0.4 10^3/uL (0.1-0.6); Absolute Neutrophils 3.7 10^3/uL (1.4-6.5); Hematocrit 35.6 % (39.0-52.0); Hemoglobin 12.4 g/dL (13.0-18.0); Mean Corp Hgb Conc. 34.8 g/dL (33.0-37.0); Mean Corpuscular Hgb 33.4 pg (27.0-31.0); Nucleated Red Blood Cells % 0 % (-); Red Blood Cell Count 3.71 10^6/uL (4.70-6.10); Red Cell Dist. Width 14.6 % (11.5-14.5)
[2024-12-20 12:34] LABS: Ammonia < 9 umol/L (9-30)
[2024-12-20 12:40] LABS: INR 1.38; PT 17.2 Sec (11.4-14.6)
[2024-12-20 12:41] LABS: APTT 37.2 Sec (23.4-35.0)
[2024-12-20 13:09] LABS: ALT (SGPT) 37 U/L (0-50); AST (SGOT) 58 U/L (17-59); Albumin 3.5 g/dl (3.5-5.0); Alkaline Phosphatase 201 U/L (38-126); Blood Urea Nitrogen 18 mg/dl (9-20); Calcium 8.9 mg/dl (8.4-10.2); Carbon Dioxide 25 mmol/L (22-30); Chloride 108 mmol/L (98-107); GGTP 146 U/L (15-73); Glucose 93 mg/dl (70-99); Potassium 3.9 mmol/L (3.5-5.1); Sodium 137 mmol/L (135-145); Total Bilirubin 4.9 mg/dl (0.2-1.3); Total Protein 6.6 g/dl (6.3-8.2); eGFR > 60.00
[2024-12-20 13:17] LABS: Mean Platelet Volume 12.4 fL (7.4-10.4); Platelet Count 88 10^3/uL (130-400)
[2024-12-20 13:59] LABS: Vitamin B12 783 pg/ml (239-931)
[2024-12-20 15:54] LABS: AFP Male/Tumor Marker 4.46 ng/ml
[2024-12-21 23:31] LABS: IgA 139 mg/dl (70-400); IgG 1872 mg/dl (700-1600); IgM 251 mg/dl (40-230)
== END ==
LOC: REG 11:41
PROVIDERS: ATTENDING PHYSICIAN Internal Medicine
DX: K76.89 Other specified diseases of liver (principal); K74.60 Unspecified cirrhosis of liver; R74.8 Abnormal levels of other serum enzymes
CPT/HCPCS: 36415; 80053; 82105; 82140; 82607; 82784; 82977; 83735; 83915; 84630; 85025; 85610; 85730

== ENCOUNTER → 2025-01-20 07:49 | Outpatient (REF) | payer OTHER, SELFPAY | LOC: MRI 07:49 | PROVIDERS: ATTENDING PHYSICIAN Internal Medicine; FAMILY PHYSICIAN Internal Medicine | DX: K74.60 Unspecified cirrhosis of liver (principal) | CPT/HCPCS: 74183; A9581 ==